=== PATIENT | female | born 1945 | race Caucasian/White ===

== ENCOUNTER → 2017-08-14 | Emergency (ER) | payer MEDICARE ==
[~2017-08-14] VITALS: Ht 165.1 cm; Wt 111.1 kg
[~2017-08-14] MED LIST: CEFTRIAXONE SOD 1 GM VIAL IM ONE; DEXAMETHASONE SOD PHOS 10 MG/1 ML VIAL INJ ONE; DEXAMETHASONE SOD PHOS 10 MG/1 ML VIAL INJ SCH; DEXAMETHASONE SOD PHOS 10 MG/1 ML VIAL ONE; DEXTROSE 50% SYRINGE 50 ML IV ONE; DIAZEPAM INJ 5 MG/ML 2 ML IM ONE; KETOROLAC TROMETHAMINE 30 MG/ML VIAL IM STA; LIDOCAINE HCL 1% LOCAL INJ 20 ML VIAL ONE; LORAZEPAM INJ 2 MG/ML VIAL IV ONE; LORAZEPAM INJ 2 MG/ML VIAL ONE; MORPHINE SULFATE 2 MG/ML SYR IM STA; SODIUM CHLORIDE 0.9% 1000ML 0 ML ONE
--- OUTSIDE RECORDS SUMMARY | 2017-08-14 09:56 | XMS REPORT | Summary of Care ---
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 Generalized anxiety disorder (300.02, F41.1) Status: Active Medications Name Dates Details Medications not documented Allergies and Adverse Reactions Name Dates Details Allergy history not documented Status: Procedures Procedure Dates Details Procedures not documented Immunization Name Dates Details Immunizations not documented Social History Name Dates Details Unknown if ever smoked Vital Signs Date Test Result Details No Known Vitals to report Results Date Description Value Details Results not documented Plan of Care Name Dates Details Planned Observations Planned Goals not documented Instructions Name Dates Details Instructions not documented Encounters Appointment; CHOLO STEINBERG LCSW Encounter Diagnosis: Problem not documented On: 11-Oct-2016 13:30 Appointment; SABINA CHRISTOPHER M.D. Encounter Diagnosis: Problem not documented On: 01-Jan-2017 15:00
[2017-08-14 12:03] LABS: BILIRUBIN,URINE NEGATIVE (NEGATIVE); CLARITY,URINE SL CLOUDY (CLEAR); COLOR,URINE YELLOW (YELLOW); KETONES,URINE NEGATIVE (NEGATIVE); NITRITE,URINE NEGATIVE (NEGATIVE); PROTEIN,URINE DIPSTICK NEGATIVE (NEGATIVE)
[2017-08-14 12:04] LABS: BACTERIA,URINE RARE /HPF; EPITHELIAL CELLS,URINE RARE /LPF; LEUKOCYTE ESTERASE ,URINE 2+ (NEGATIVE); RBC,URINE 0-5 /HPF (0-5); URINE UROBILINOGEN 0.2 mg/dL (0.2 - 1); WBC,URINE (MAN) 21-50 /HPF (0-5)
--- NOTE | 2017-08-14 12:53 | Diagnostic Imaging Report ---
PROCEDURE:L-SPINE COMPLETE COMPARISON:None. INDICATIONS:BACK SPASMS FINDINGS: There are 5 lumbar-type vertebral bodies. Age indeterminate compression fracture the L1 vertebral body is present with approximate 25% decrease at the anterior vertebral body height. Multilevel degenerative changes evidenced by anterior osteophytosis and bilateral facet hypertrophy at L4/L5 and L5/S1. The vertebral bodies are well-aligned without evidence of spondylolisthesis. There are no fractures, lytic or blastic lesions. The disc-space heights are well-maintained. The sacroiliac joints are unremarkable. CONCLUSION: No acute radiographic abnormality. Age-indeterminate compression fracture of L1. Degenerative changes. Dictated by: Wily Denney M.D. on 08/14/2017 at 12:54 Electronically approved by: Wily Denney M.D. on 08/14/2017 at 12:54
--- NOTE | 2017-08-14 13:31 | Diagnostic Imaging Report ---
PROCEDURE: CT ABDOMEN AND PELVIS WITHOUT CONTRAST TECHNIQUE: The abdomen and pelvis were scanned utilizing a multidetector helical scanner from the diaphragm to the lesser trochanter. No IV contrast was administered as per physician request. Coronal and sagittal multiplanar reformations were obtained. COMPARISON: None. INDICATIONS: BACK SPASM, RIGHT FLANK PAIN FINDINGS: ABSENCE OF INTRAVENOUS CONTRAST DECREASES SENSITIVITY FOR DETECTION OF FOCAL LESIONS AND VASCULAR PATHOLOGY. LOWER THORAX: Normal. HEPATOBILIARY: No focal hepatic lesions. No biliary ductal dilatation. Cholecystectomy. SPLEEN: No splenomegaly. PANCREAS: No focal masses or ductal dilatation. ADRENALS: No adrenal nodules. KIDNEYS/URETERS: No hydronephrosis, stones, or solid mass lesions. PELVIC ORGANS/BLADDER: Hysterectomy. No ovaries aren't visualized. Normal urinary bladder. PERITONEUM / RETROPERITONEUM: No free air or fluid. LYMPH NODES: No lymphadenopathy. VESSELS: Atherosclerotic calcifications. GI TRACT: No distention or wall thickening. Normal appendix. Moderate amount of retained feces limits intraluminal evaluation of the colon. BONES AND SOFT TISSUES: Unremarkable. Degenerative changes of the thoracic spine. Age indeterminate compression fracture of L1 vertebral body with 25% decrease in the anterior vertebral body height. IMPRESSION: No acute abnormality of the abdomen and pelvis. Age-indeterminate L1 vertebral body compression fracture. Dictated by: Wily Denney M.D. on 08/14/2017 at 13:31 Electronically approved by: Wily Denney M.D. on 08/14/2017 at 13:31
== END | disposition home or self-care (01) ==
LOC: ER 09:54
DX: M54.5 Low back pain (principal); M54.6 Pain in thoracic spine; S39.012A Strain of muscle, fascia and tendon of lower back, initial encounter; N39.0 Urinary tract infection, site not specified; I10 Essential (primary) hypertension
CPT/HCPCS: 72110; 74176; 81001; 99283; J0696; J1100; J1885; J2001; J2060; J2270; J7030; J7799

== ENCOUNTER 2017-08-18 00:50 | Emergency (ER) | payer MEDICARE ==
[~2017-08-18] VITALS: Ht 165.1 cm; Wt 111.1 kg
--- OUTSIDE RECORDS SUMMARY | 2017-08-18 00:52 | XMS REPORT ---
Author Author [facility] Address Unknown Phone Unavailable Care Team Providers Care Technician Plant And Maintenance Name Role Phone SOHA IRWIN Unavailable Unavailable Problems This patient has no known problems. Allergies, Adverse Reactions, Alerts This patient has no known allergies or adverse reactions. Medications This patient has no known medications. Results Test Description Test Time Test Comments Text Results Atomic Results Result Comments CT ABDOMEN/PELVIS WO [place] [address] Patient Name: BRITTNEY DINH MR #: [id number] : 1945 Age/Sex: 72/F Req #: [id number] [facility] Physician: Ordered by: SOHA IRWIN MD Report #: [id number] Location: ER Room/Bed: Procedure: [id number] CT/CT ABDOMEN/PELVIS WO Exam Date: 08/14/17 Exam Time: 1251 REPORT STATUS: Signed PROCEDURE: CT ABDOMEN AND PELVIS WITHOUT CONTRAST TECHNIQUE: The abdomen and pelvis were scanned utilizing a multidetector helical scanner from the diaphragm to the lesser trochanter. No IV contrast was administered as per physician request. Coronal and sagittal multiplanar reformations were obtained. COMPARISON: None. INDICATIONS: BACK SPASM, RIGHT FLANK PAIN FINDINGS : ABSENCE OF INTRAVENOUS CONTRAST DECREASES SENSITIVITY FOR DETECTION OF FOCAL LESIONS AND VASCULAR PATHOLOGY. LOWER THORAX: Normal. HEPATOBILIARY: No focal hepatic lesions. No biliary ductal dilatation. Cholecystectomy. SPLEEN: No splenomegaly. PANCREAS: No focal masses or ductal dilatation. ADRENALS: No adrenal nodules. KIDNEYS/URETERS: No hydronephrosis, stones, or solid mass lesions. PELVIC ORGANS/BLADDER: Hysterectomy. No ovaries aren't visualized. Normal urinary bladder. PERITONEUM / RETROPERITONEUM: No free air or fluid. LYMPH NODES: No lymphadenopathy. VESSELS: Atherosclerotic calcifications. GI TRACT: No distention or wall thickening. Normal appendix. Moderate amount of retained feces limits intraluminal evaluation of the colon. BONES AND SOFT TISSUES : Unremarkable. Degenerative changes of the thoracic spine. Age indeterminate compression fracture of L1 vertebral body with 25% decrease in the anterior vertebral body height. IMPRESSION: No acute abnormality of the abdomen and pelvis. Age-indeterminate L1 vertebral body compression fracture. Dictated by: Elva Denney M.D. on 08/14/2017 at 13: 31 Electronically approved by: Elva Denney M.D. on 08/14/2017 at 13:31 Dictated By: ELVA DENNEY MD 1331 Transcribed By: EUN on 08/14/17 1331 COPY TO : SOHA IRWIN MD LUMBAR, COMPLETE MIN 4VW [place] [address] Patient Name: BRITTNEY DINH MR #: [id number] : 1945 Age/Sex: 72/F Req #: [id number] Adm Physician: Ordered by: SOHA IRWIN MD Report #: [id number] Location: ER Room/Bed: Procedure: [id number] DX/SP LUMBAR, COMPLETE MIN 4VW Exam Date: 08/14/17 Exam Time: 1150 REPORT STATUS: Signed PROCEDURE: L-SPINE COMPLETE COMPARISON: None. INDICATIONS: BACK SPASMS FINDINGS: There are 5 lumbar-type vertebral bodies. Age indeterminate compression fracture the L1 vertebral body is present with approximate 25% decrease at the anterior vertebral body height. Multilevel degenerative changes evidenced by anterior osteophytosis and bilateral facet hypertrophy at L4/L5 and L5/S1. The vertebral bodies are well-aligned without evidence of spondylolisthesis. There are no fractures, lytic or blastic lesions. The disc-space heights are well-maintained. The sacroiliac joints are unremarkable. CONCLUSION: No acute radiographic abnormality. Age- indeterminate compression fracture of L1. Degenerative changes. Dictated by: Elva Denney M.D. on 08/14/2017 at 12:54 Electronically approved by: Elva Denney M.D. on 08/14/2017 at 12:54 Dictated By : ELVA DENNEY MD 125 Transcribed By: EUN on 08/14/17 1254 COPY TO: SOHA IRWIN MD
== END 2017-08-18 01:20 | disposition home or self-care (01) ==
LOC: ER 00:50
DX: M54.6 Pain in thoracic spine (principal); G89.29 Other chronic pain; I10 Essential (primary) hypertension; F41.9 Anxiety disorder, unspecified; F32.9 Major depressive disorder, single episode, unspecified
CPT/HCPCS: 99282

== ENCOUNTER → 2018-07-21 | Day surgery (SDC) | payer MEDICARE ==
[~2018-07-21] MED LIST changes: +AMLODIPINE BESYL5 MG PO; +BUPROPION HCL75 MG PO; -CEFTRIAXONE SOD 1 GM VIAL IM ONE; +CYMBALTA30 MG PO; -DEXAMETHASONE SOD PHOS 10 MG/1 ML VIAL INJ ONE; -DEXAMETHASONE SOD PHOS 10 MG/1 ML VIAL INJ SCH; -DEXAMETHASONE SOD PHOS 10 MG/1 ML VIAL ONE; -DEXTROSE 50% SYRINGE 50 ML IV ONE; -DIAZEPAM INJ 5 MG/ML 2 ML IM ONE; +FENTANYL CITRATE/PF 100MCG/2 ML INJ ONE; -KETOROLAC TROMETHAMINE 30 MG/ML VIAL IM STA; -LIDOCAINE HCL 1% LOCAL INJ 20 ML VIAL ONE; -LORAZEPAM INJ 2 MG/ML VIAL IV ONE; -LORAZEPAM INJ 2 MG/ML VIAL ONE; +MIDAZOLAM HCL 2 MG/2 ML VIAL ONE; -MORPHINE SULFATE 2 MG/ML SYR IM STA; +OR PHACO EYE KIT ONE; +PREOP PHACO EYE KIT ONE; +SEROQUEL25 MG PO; -SODIUM CHLORIDE 0.9% 1000ML 0 ML ONE; +TIZANIDINE HCL4 MG PO; +TYLENOL WITH C1 EACH PO
--- OUTSIDE RECORDS SUMMARY | 2018-07-21 10:10 | XMS REPORT ---
Author Author Kodi Sue Organization [employer] Address Unknown Phone Unavailable Care Team Providers Care Pipe Recovery Specialist Name Role Phone Kodi Sue CP Unavailable Encounters Encounter Location Date Unknown [place] October 30, 2015 Sick [place] November 30, 2015 Sick Visit [place] Jan 01, 2016 Unknown [place] Jan 22, 2016 Unknown [place] October 19, 2015 Unknown [place] October 19, 2015 Sick Visit [place] October 17, 2015 Problems Problem Type Condition ICD-9 Code Onset Dates Condition Status Problem Adjustment disorder with anxiety F43.22 Active Problem Acute gastric ulcer with hemorrhage K25.0 Active Problem Acute posthemorrhagic anemia D62 Active Problem Essential (primary) hypertension I10 Active Problem Acute abdominal pain R10.9 Active Problem Severe diarrhea K52.9 Active Problem Chronic pancreatitis K86.1 Active Problem Hypotension I95.9 Active Problem H/O gastric ulcer Z87.19 Active Problem Dehydration E86.0 Active Problem PTSD (post-traumatic stress disorder) F43.10 Active Social History Social History Element Qualifiers Date Reported Tobacco Use: . Are you a: current smoker Jan 16, 2016 Use of recreational / street drugs? . Answer: No Jan 16, 2016 Do you have pets? . Status: Yes, Type: dog(s) Jan 16, 2016 Marital Status: . Jan 16, 2016 Caffeine intake? . Status: Yes, What type: Coffee Jan 16, 2016 Do you exercise? . Answer: No Jan 16, 2016 Do you drink alcohol? . Status: No Jan 16, 2016 Travel outside [place]: . no Jan 16, 2016 Occupation: . retired Jan 16, 2016 Summary Purpose [employer] Submission
--- OUTSIDE RECORDS SUMMARY | 2018-07-21 10:10 | XMS REPORT ---
Author Author Kodi Sue Organization [employer] Address Unknown Phone Unavailable Care Team Providers Care Breeding Manager Name Role Phone Kodi Sue CP Unavailable Encounters Encounter Location Date Unknown [place] October 30, 2015 Unknown [facility] October 19, 2015 Unknown [place] October 19, 2015 Sick Visit [place] October 17, 2015 Problems Problem Type Condition ICD-9 Code Onset Dates Condition Status Problem H/O gastric ulcer Z87.19 Active Problem Acute gastric ulcer with hemorrhage K25.0 Active Problem Hypotension I95.9 Active Problem Essential (primary) hypertension I10 Active Problem Acute posthemorrhagic anemia D62 Active Problem Adjustment disorder with anxiety F43.22 Active Medications Medication Code System Code Instructions Start Date End Date Status Dosage Cymbalta MEDISPAN [address]-80 60 MG Orally Once a day Mar 25, 2014 Active 1 capsule Lisinopril MEDISPAN [address]-66 40 mg Orally Once a day Active 1 tablet Social History Social History Element Qualifiers Date Reported Tobacco Use: . Are you a: current smoker October 17, 2015 Use of recreational / street drugs? . Answer: No October 17, 2015 Do you have pets? . Status: Yes, Type: dog(s) October 17, 2015 Marital Status: . October 17, 2015 Caffeine intake? . Status: Yes, What type: Coffee October 17, 2015 Do you exercise? . Answer: No October 17, 2015 Do you drink alcohol? . Status: No October 17, 2015 Travel outside [place]: . no October 17, 2015 Summary Purpose [employer] Submission
--- OUTSIDE RECORDS SUMMARY | 2018-07-21 10:10 | XMS REPORT ---
Author Author Kodi Sue [facility] [employer] Address Unknown Phone Unavailable Care Team Providers Care Sandstone Splitter Name Role Phone Kodi Sue Unavailable Allergies, Adverse Reactions, Alerts Substance Reaction Event Type N.K.D.A. Info Not Available Non Drug Allergy Encounters Encounter Location Date Unknown [place] October 30, 2015 Sick Visit [facility] November 30, 2015 Sick Visit [facility] Jan 01, 2016 Unknown J[place] October 19, 2015 Unknown [place] October 19, 2015 Sick Visit J[place], [place] October 17, 2015 Problems Problem Type Condition ICD-9 Code Onset Dates Condition Status Problem Essential (primary) hypertension I10 Active Problem Acute posthemorrhagic anemia D62 Active Problem Adjustment disorder with anxiety F43.22 Active Problem Severe diarrhea K52.9 Active Problem Dehydration E86.0 Active Problem Acute abdominal pain R10.9 Active Problem H/O gastric ulcer Z87.19 Active Problem Acute gastric ulcer with hemorrhage K25.0 Active Problem PTSD (post-traumatic stress disorder) F43.10 Active Problem Hypotension I95.9 Active Assessment Dehydration E86.0 Active Assessment Severe diarrhea K52.9 Active Assessment Acute abdominal pain R10.9 Active Medications Medication Code System Code Instructions Start Date End Date Status D[facility] [address]-47 40 mg Orally Once a day Active 1 capsule Cymbalta [facility] [address]-67 60 MG Orally Once a day Mar 25, 2014 Active 1 capsule Carafate [facility] [address]-62 1 GM Orally Twice a day Active 1 tablet on an empty stomach [facility] [address]-01 1 MG Orally every six to eight hours Jan 25, 2013 Active 1 tablet Lisinopril [facility] [address]-92 40 mg Orally Once a day Active [...] 2016 Occupation: . retired Jan 16, 2016 Vital Signs Date/Time: Jan 01, 2016 Weight 198 lbs Height 64 in Temperature 97.9 F Blood Pressure Diastolic 101 mm Hg Blood Pressure Systolic 137 mm Hg Summary Purpose eClinicalWorks Submission
--- OUTSIDE RECORDS SUMMARY | 2018-07-21 10:10 | XMS REPORT | Summary of Care ---
Author Author [facility] Organization [facility] Address Unknown Phone Unavailable Encounter DEMETRICE Siddiqi(HILARY) [id number] Date(s): 03/13/17 - 03/13/17 [facility] [address] [place] [address]- [phone] Discharge Diagnosis: Vertebral compression fracture Discharge Disposition: Home or Self Care Attending Physician: Tyree Woodard DO Vital Signs 1 2 3 Most recent to oldest [Reference Range]: 98 DegF (03/13/17 7:13 PM) 98.3 DegF (03/13/17 11:54 AM) Temperature Oral [96.4-99.1 DegF] 115/89 mmHg (03/13/17 7:13 PM) 140/72 mmHg (03/13/17 6:30 PM) 139/72 mmHg (03/13/17 4:40 PM) Blood Pressure [90-140/60-90 mmHg] 18 BRMIN (03/13/17 7:13 PM) 19 BRMIN (03/13/17 6:30 PM) 19 BRMIN (03/13/17 4:40 PM) Respiratory Rate [14-20 BRMIN] 70 bpm (03/13/17 7:13 PM) 69 bpm (03/13/17 6:30 PM) 74 bpm (03/13/17 4:40 PM) Peripheral Pulse Rate [60-100 bpm] 95.455 kg (03/13/17 11:54 AM) Weight Problem List Condition Effective Dates Status Health Status Informant Depression(Confirmed 1996 Resolved ) HTN - 2001 Resolved Hypertension(Confirm ed) Allergies, Adverse Reactions, Alerts Substance Reaction Severity Status NKDA Active Medications acetaminophen-hydrocodone 325 mg-5 mg oral tablet 1 tab, Route: PO, Drug Form: TAB, Dosing Weight 95.455, kg, ONCE, STAT, Start da te: 03/13/17 18:23:00 GUT SNATCHER, Stop date: 03/13/17 18:23:00 GUT SNATCHER Start Date: 03/13/17 Stop Date: 03/13/17 Status: Completed morphine Sulfate 4 mg, Route: IVP, ONCE, Dosing Weight 95.455, kg, Priority: STAT, Start date: 16:26:00 GUT SNATCHER, Stop date: 03/13/17 16:26:00 GUT SNATCHER Start Date: 03/13/17 Stop Date: 03/13/17 Status: Discontinued ondansetron 4 mg, Route: IVP, Drug form: INJ, ONCE, Dosing Weight 95.455, kg, Priority: STAT , Start date: 03/13/17 16:26:00 GUT SNATCHER, Stop date: 03/13/17 16:26:00 GUT SNATCHER Start Date: 03/13/17 Stop Date: 03/13/17 Status: Discontinued tramadol 50 mg oral tablet 50 mg=1 tab, PO, Q12H, X 7 day, # 14 tab, 0 Refill(s) Start Date: 03/13/17 Stop Date: 03/20/17 Status: Ordered Ultram 50 mg oral tablet 50 mg, 1 tab, Route: PO, Drug form: TAB, ONCE, Dosing Weight 95.455, kg, Priorit y: STAT, Start date: 03/13/17 16:34:00 GUT SNATCHER, Stop date: 03/13/17 16:34:00 GUT SNATCHER Notes: Not to exceed 400mg/day. (Same As: Ultram) Start Date: 03/13/17 Stop Date: 03/13/17 Status: Completed Zofran 4 mg, Route: PO, Drug form: TABDIS, ONCE, Dosing Weight 95.455, kg, Priority: ST AT, Start date: 03/13/17 16:45:00 GUT SNATCHER, Stop date: 03/13/17 16:45:00 GUT SNATCHER Start Date: 03/13/17 Stop Date: 03/13/17 Status: Completed Zofran ODT 4 mg, Route: PO, Drug form: TABDIS, ONCE, Dosing Weight 95.455, kg, Priority: ST AT, Start date: 03/13/17 19:12:00 GUT SNATCHER, Stop date: 03/13/17 19:12:00 GUT SNATCHER Start Date: 03/13/17 Stop Date: 03/13/17 Status: Completed Results ELECTROLYTES Most recent to 1 oldest [Reference Range]: Sodium Lvl [135-145 141 mEq/L mEq/L] (03/13/17 1:27 PM) Potassium Lvl 4.6 mEq/L [3.5-5.1 mEq/L] (03/13/17 1:27 PM) Chloride Lvl [95-109 107 mEq/L mEq/L] (03/13/17 1:27 PM) CO2 [24-32 mEq/L] 26 mEq/L (03/13/17 1:27 PM) AGAP [10.0-20.0 12.6 mEq/L mEq/L] (03/13/17 1:27 PM) CHEM PANEL Most recent to 1 oldest [Reference Range]: Creatinine Lvl 0.92 mg/dL [0.50-1.40 mg/dL] (03/13/17 1:27 PM) eGFR 64 mL/min/1.73m2 1 *NA* (03/13/17 1:27 PM) BUN [7-22 mg/dL] 10 mg/dL (03/13/17 1:27 PM) B/C Ratio [6-25] 11 (03/13/17 1:27 PM) Glucose Lvl [70-99 89 mg/dL mg/dL] (03/13/17 1:27 PM) Total Protein 7.1 g/dL [6.4-8.4 g/dL] (03/13/17 1:27 PM) Albumin Lvl [3.5-5.0 3.4 g/dL g/dL] *LOW* (03/13/17 1:27 PM) Globulin [2.7-4.2 3.7 g/dL g/dL] (03/13/17 1:27 PM) A/G Ratio [0.7-1.6] 0.9 (03/13/17 1:27 PM) Calcium Lvl 8.8 mg/dL [8.5-10.5 mg/dL] (03/13/17 1:27 PM) ALT [0-65 unit/L] 48 unit/L (03/13/17 1:27 PM) AST [0-37 unit/L] 49 unit/L *HI* (03/13/17 1:27 PM) Alk Phos [39-136 95 unit/L unit/L] (03/13/17 1:27 PM) Bili Total [0.2-1.3 0.8 mg/dL mg/dL] (03/13/17 1:27 PM) 1Result Comment: The eGFR is calculated using the CKD-EPI formula. In most young, healthy individuals the eGFR will be >90 mL/min/1.73m2. The eGFR declines with age. An eGFR of 60-89 may be normal in some populations, particularly the elderly, for whom the CKD-EPI formula has not been extensively validated. Use of the eGFR is not recommended in the following populations: Individuals with unstable creatinine concentrations, including patients and those with serious co-morbid conditions. Patients with extremes in muscle mass or diet. The data above are obtained from the National Kidney Disease Education Program ( NKDEP) which additionally recommends that when the eGFR is used in patients with extremes of body mass index for purposes of drug dosing, the eGFR should be mul tiplied by the estimated BMI. CARDIAC ENZYMES Most recent to 1 oldest [Reference Range]: Troponin-I <0.02 ng/mL [0.00-0.40 ng/mL] (03/13/17 1:27 PM) HEMATOLOGY Most recent to 1 oldest [Reference Range]: WBC [3.7-10.4 K/CMM] 9.0 K/CMM (03/13/17 1:27 PM) RBC [4.20-5.40 5.45 M/CMM M/CMM] *HI* (03/13/17 1:27 PM) Hgb [12.0-16.0 g/dL] 15.5 g/dL (03/13/17 1:27 PM) Hct [36.0-48.0 %] 47.3 % (03/13/17 1:27 PM) MCV [80.0-98.0 fL] 86.7 fL (03/13/17 1:27 PM) MCH [27.0-31.0 pg] 28.4 pg (03/13/17 1:27 PM) MCHC [32.0-36.0 32.8 g/dL g/dL] (03/13/17 1:27 PM) RDW [11.5-14.5 %] 16.5 % *HI* (03/13/17 1:27 PM) Platelet [133-450 205 K/CMM K/CMM] (03/13/17 1:27 PM) MPV [7.4-10.4 fL] 7.8 fL (03/13/17 1:27 PM) Segs [45.0-75.0 %] 61.1 % (03/13/17 1:27 PM) Lymphocytes 20.6 % [20.0-40.0 %] (03/13/17 1:27 PM) Monocytes [2.0-12.0 8.4 % %] (03/13/17 1:27 PM) Eosinophils [0.0-4.0 9.3 % %] *HI* (03/13/17 1:27 PM) Basophils [0.0-1.0 0.6 % %] (03/13/17 1:27 PM) Segs-Bands # 5.5 K/CMM [1.5-8.1 K/CMM] (03/13/17 1:27 PM) Lymphocytes # 1.9 K/CMM [1.0-5.5 K/CMM] (03/13/17 1:27 PM) Monocytes # [0.0-0.8 0.8 K/CMM K/CMM] (03/13/17 1:27 PM) Eosinophils # 0.8 K/CMM [0.0-0.5 K/CMM] *HI* (03/13/17 1:27 PM) Basophils # [0.0-0.2 0.1 K/CMM K/CMM] (03/13/17 1:27 PM) PT [12.0-14.7 12.2 seconds seconds] (03/13/17 1:27 PM) INR [0.85-1.17] 0.91 (03/13/17 1:27 PM) PTT [22.9-35.8 27.7 seconds seconds] (03/13/17 1:27 PM) Immunizations Given and Recorded Vaccine Date Status Refusal Reason pneumococcal 13-valent vaccine 01/02/16 Given pneumococcal 23-valent vaccine 10/29/12 Given Procedures Procedure Date Related Diagnosis Body Site Hysterectomy 1982 Abdomen endoscopy Cholecystectomy Spiral CT scan Social History Social History Type Response Smoking Status Former smoker; Type: Cigarettes; Exposure to Tobacco Smoke None; Cigarette Smoking Last 365 Days Yes; Reg Smoking Cessation Counseling No Assessment and Plan No data available for this section
--- OUTSIDE RECORDS SUMMARY | 2018-07-21 10:10 | XMS REPORT | Summary of Care ---
Author Author [facility] Organization [facility] Address Unknown Phone Unavailable Encounter DEMETRICE Siddiqi(HILARY) [id number] Date(s): 01/01/16 - 01/03/16 [facility] [address] [place] [address]- Discharge Disposition: Home or Self Care Attending Physician: Kodi Sue MD Admitting Physician: Kodi Sue MD Vital Signs 1 2 3 Most recent to oldest [Reference Range]: 165.1 cm (01/01/16 12:03 PM) Height 98.1 DegF (01/03/16 12:10 PM) 97.8 DegF (01/03/16 8:11 AM) 97.9 DegF (01/03/16 4:00 AM) Temperature Oral [96.4-99.1 DegF] 131/83 mmHg (01/03/16 12:10 PM) 125/65 mmHg (01/03/16 8:11 AM) 125/83 mmHg (01/03/16 4:00 AM) Blood Pressure [90-140/60-90 mmHg] 18 BRMIN (01/03/16 12:10 PM) 18 BRMIN (01/03/16 8:11 AM) 18 BRMIN (01/03/16 4:00 AM) Respiratory Rate [14-20 BRMIN] 75 bpm (01/03/16 12:10 PM) 74 bpm (01/03/16 8:11 AM) 66 bpm (01/03/16 4:00 AM) Peripheral Pulse Rate [60-100 bpm] 89.818 kg (01/01/16 12:03 PM) Weight 32.95 m2 (01/01/16 12:03 PM) Body Mass Index Problem List Condition Effective Dates Status Health Status Informant Depression(Confirmed 1996 Resolved ) HTN - 2001 Resolved Hypertension(Confirm ed) Allergies, Adverse Reactions, Alerts Substance Reaction Severity Status NKDA Active Medications acetaminophen 650 mg, 2 tab, Route: PO, Drug form: TAB, Q4H, Dosing Weight 89.818, kg, PRN Eugene n 1-3/Temp > 100.4 F, Start date: 01/01/16 12:05:00 CDT, Duration: 30 day, Stop date: 01/31/16 12:04:00 CDT Notes: Do not exceed 4 gm/day. (Same as: Tylenol) Start Date: 01/01/16 Stop Date: 01/03/16 Status: Discontinued acetaminophen-hydrocodone 325 mg-5 mg oral tablet 2 tab, Route: PO, Drug Form: TAB, Dosing Weight 89.818, kg, Q4H, PRN Pain Score 7-10, Start date: 01/01/16 12:05:00 CDT, Duration: 30 day, Stop date: 01/31/16 1 2:04:00 CDT Notes: (Same as: Naylor 325/5) Do not exceed 4gm/day of acetaminophen. Start Date: 01/01/16 Stop Date: 01/03/16 Status: Discontinued Cipro 500 mg oral tablet 500 mg=1 tab, PO, Q12H, X 7 day, # 14 tab, 0 Refill(s) Start Date: 01/03/16 Stop Date: 01/10/16 Status: Ordered Cipro I.V. 400 mg/200 mL intravenous solution 400 mg, 200 mL, Route: IVPB, Drug form: INJ, [id number], Dosing Weight 77.273, kg, Start date: 01/01/16 13:00:00 CDT, Duration: 30 day, Stop date: 01/31/16 5:00:00 CDT Notes: Do not refrigerate Start Date: 01/01/16 Stop Date: 01/03/16 Status: Discontinued DULoxetine 60 mg, 2 cap, Route: PO, Drug form: DRC, Daily, Dosing Weight 89.818, kg, Start date: 01/02/16 9:00:00 CDT, Duration: 30 day, Stop date: 01/31/16 9:00:00 CDT Notes: (Same as: Cymbalta) (Do Not Crush) Start Date: 01/02/16 Stop Date: 01/03/16 Status: Discontinued DULoxetine 60 mg oral delayed release capsule 60 mg=1 cap, PO, Daily, # 90 cap, 0 Refill(s) Start Date: 01/01/16 Status: Ordered enoxaparin 40 mg, 0.4 mL, Route: SUB-Q, Drug form: INJ, [id number], Dosing Weight 89.818, kg, Start date: 01/01/16 21:00:00 CDT, Duration: 30 day, Stop date: 01/30/16 21:00: 00 CDT Notes: (Same as: Lovenox) Start Date: 01/01/16 Stop Date: 01/03/16 Status: Discontinued Flagyl 500 mg, 100 mL, Route: IVPB, Drug form: INJ, [id number], Dosing Weight 77.273, kg, S tart date: 01/01/16 14:00:00 CDT, Duration: 30 day, Stop date: 01/31/16 9:00:00 CDT Notes: (Same as: Flagyl) Avoid alcohol. Start Date: 01/01/16 Stop Date: 01/03/16 Status: Discontinued Flagyl 500 mg oral tablet 500 mg=1 tab, PO, Q8H, X 7 day, # 21 tab, 0 Refill(s) Start Date: 01/03/16 Stop Date: 01/10/16 Status: Ordered lisinopril PO, Daily, 0 Refill(s) Start Date: 01/01/16 Stop Date: 01/03/16 Status: Discontinued lisinopril 40 mg oral tablet 40 mg=1 tab, PO, Daily, # 90 tab, 0 Refill(s) Start Date: 01/01/16 Status: Ordered loperamide 1 mg, 5 mL, Route: PO, Drug form: LIQ, Q6H, Dosing Weight 89.818, kg, PRN as nee ded for loose stool, Priority: NOW, Start date: 01/03/16 14:32:00 CDT, Stop date : 02/02/16 16:00:00 CDT Notes: (Same as: Imodium) Start Date: 01/03/16 Stop Date: 01/03/16 Status: Discontinued morphine Sulfate 2 mg, 1 mL, Route: IVP, Drug form: INJ, Q4H, Dosing Weight 89.818, kg, PRN Pain Score 7-10, Start date: 01/01/16 12:05:00 CDT, Duration: 30 day, Stop date: 01/04 12/18 12:04:00 CDT Notes: (Same as:MORPhine Sulfate) Start Date: 01/01/16 Stop Date: 01/03/16 Status: Discontinued omeprazole 40 mg, PO, Daily, 0 Refill(s) Start Date: 01/01/16 Status: Ordered ondansetron 4 mg, 2 mL, Route: IVP, Drug form: INJ, Q6H, Dosing Weight 89.818, kg, PRN Nause a & Vomiting, Start date: 01/01/16 12:05:00 CDT, Duration: 30 day, Stop date: 01/31/16 12:04:00 CDT Notes: (Same as: Emmy) MEDICATION WASTE Product Size: 4 mgProduct Was mahendra: ___ mg Start Date: 01/01/16 Stop Date: 01/03/16 Status: Discontinued pneumococcal 13-valent vaccine 0.5 mL, Route: IM, Drug Form: INJ, Daily, Start date: 01/02/16 9:00:00 CDT, Stop date: 01/02/16 12:00:00 CDT Notes: Lightly roll vial (DO NOT SHAKE) before administration. (Same as: Prevna r 13) Start Date: 01/02/16 Stop Date: 01/02/16 Status: Completed sodium chloride 0.9% 1000 ml INJ 1,000 mL 1,000 mL, Rate: 125 ml/hr, Infuse over: 8 hr, Route: IV, Dosing Weight 77.273 kg , Total Volume: 1,000, Start date: 01/01/16 11:31:00 CDT, Duration: 30 day, Stop date: 01/31/16 11:30:00 CDT Start Date: 01/01/16 Stop Date: 01/03/16 Status: Discontinued sucralfate 1 g oral tablet 1 gm=1 tab, PO, QID, # 120 tab, 0 Refill(s) Start Date: 01/01/16 Stop Date: 01/31/16 Status: Ordered Xanax 0.5 mg oral tablet 0.5 mg=1 tab, PO, BID, 0 Refill(s) Start Date: 01/01/16 Status: Ordered Xanax 0.5 mg oral tablet 0.5 mg, 1 tab, Route: PO, Drug form: TAB, BID, Dosing Weight 89.818, kg, Start d ate: 01/01/16 21:05:00 CDT, Duration: 30 day, Stop date: 01/31/16 9:00:00 CDT Notes: With food or milk(Same as: Xanax) Start Date: 01/01/16 Stop Date: 01/03/16 Status: Discontinued Results ELECTROLYTES 1 2 3 Most recent to oldest [Reference Range]: 141 mEq/L (01/02/16 10:21 AM) 138 mEq/L (01/01/16 7:26 PM) Sodium Lvl [135-145 mEq/L] 4.2 mEq/L (01/02/16 10:21 AM) 4.1 mEq/L (01/01/16 7:26 PM) Potassium Lvl [3.5-5.1 mEq/L] 110 mEq/L *HI* (01/02/16 10:21 AM) 106 mEq/L (01/01/16 7:26 PM) Chloride Lvl [95-109 mEq/L] 26 mEq/L (01/02/16 10:21 AM) 29 mEq/L (01/01/16 7:26 PM) CO2 [24-32 mEq/L] 9.2 mEq/L *LOW* (01/02/16 10:21 AM) 7.1 mEq/L *LOW* (01/01/16 7:26 PM) AGAP [10.0-20.0 mEq/L] CHEM PANEL 1 2 3 Most recent to oldest [Reference Range]: 1.10 mg/dL (01/02/16 10:21 AM) 1.10 mg/dL (01/01/16 9:56 PM) 1.07 mg/dL (01/01/16 7:26 PM) Creatinine Lvl [0.50-1.40 mg/dL] 52 mL/min/1.73m2 1 *NA* (01/02/16 10:21 AM) 52 mL/min/1.73m2 2 *NA* (01/01/16 9:56 PM) 53 mL/min/1.73m2 3 *NA* (01/01/16 7:26 PM) eGFR 12 mg/dL (01/02/16 10:21 AM) 13 mg/dL (01/01/16 7:26 PM) BUN [7-22 mg/dL] 12 (01/01/16 7:26 PM) B/C Ratio [6-25] 103 mg/dL *HI* (01/02/16 10:21 AM) 84 mg/dL (01/01/16 7:26 PM) Glucose Lvl [70-99 mg/dL] 7.3 g/dL (01/01/16 7:26 PM) Total Protein [6.4-8.4 g/dL] 3.3 g/dL *LOW* (01/01/16 7:26 PM) Albumin Lvl [3.5-5.0 g/dL] 4.0 g/dL (01/01/16 7:26 PM) Globulin [2.7-4.2 g/dL] 0.8 (01/01/16 7:26 PM) A/G Ratio [0.7-1.6] 8.6 mg/dL (01/02/16 10:21 AM) 8.9 mg/dL (01/01/16 7:26 PM) Calcium Lvl [8.5-10.5 mg/dL] 2.0 mg/dL (01/01/16 7:26 PM) Magnesium Lvl [1.8-2.4 mg/dL] 26 unit/L (01/01/16 7:26 PM) ALT [0-65 unit/L] 32 unit/L (01/01/16 7:26 PM) AST [0-37 unit/L] 80 unit/L (01/01/16 7:26 PM) Alk Phos [39-136 unit/L] 0.5 mg/dL (01/01/16 7:26 PM) Bili Total [0.2-1.3 mg/dL] 58 unit/L (01/01/16 7:26 PM) Amylase Lvl [25-115 unit/L] 178 unit/L (01/01/16 7:26 PM) Lipase Lvl [73-393 unit/L] 1Result Comment: The eGFR is calculated using [...] be mul tiplied by the estimated BMI. 2Result Comment: The eGFR is calculated using the [...] be mul tiplied by the estimated BMI. 3Result Comment: The eGFR is calculated using the [...] be mul tiplied by the estimated BMI. HEMATOLOGY 1 2 3 Most recent to oldest [Reference Range]: 6.7 K/CMM (01/02/16 10:21 AM) 11.8 K/CMM *HI* (01/01/16 2:17 PM) WBC [3.7-10.4 K/CMM] 4.96 M/CMM (01/02/16 10:21 AM) 5.17 M/CMM (01/01/16 2:17 PM) RBC [4.20-5.40 M/CMM] 13.6 g/dL (01/02/16 10:21 AM) 14.2 g/dL (01/01/16 2:17 PM) Hgb [12.0-16.0 g/dL] 41.5 % (01/02/16 10:21 AM) 43.8 % (01/01/16 2:17 PM) Hct [36.0-48.0 %] 83.7 fL (01/02/16 10:21 AM) 84.7 fL (01/01/16 2:17 PM) MCV [80.0-98.0 fL] 27.5 pg (01/02/16 10:21 AM) 27.4 pg (01/01/16 2:17 PM) MCH [27.0-31.0 pg] 32.8 g/dL (01/02/16 10:21 AM) 32.4 g/dL (01/01/16 2:17 PM) MCHC [32.0-36.0 g/dL] 16.0 % *HI* (01/02/16 10:21 AM) 16.2 % *HI* (01/01/16 2:17 PM) RDW [11.5-14.5 %] 162 K/CMM (01/02/16 10:21 AM) 177 K/CMM (01/01/16 9:56 PM) 174 K/CMM (01/01/16 2:17 PM) Platelet [133-450 K/CMM] 8.7 fL (01/02/16 10:21 AM) 8.8 fL (01/01/16 2:17 PM) MPV [7.4-10.4 fL] 46.9 % (01/02/16 10:21 AM) 37.0 % *LOW* (01/01/16 2:17 PM) Segs [45.0-75.0 %] 0.0 % (01/01/16 2:17 PM) Bands [0.0-11.0 %] 19.5 % *LOW* (01/02/16 10:21 AM) 24.0 % (01/01/16 2:17 PM) Lymphocytes [20.0-40.0 %] 4.0 % *HI* (01/01/16 2:17 PM) Atypical Lymphs [<=0.0 %] 6.4 % (01/02/16 10:21 AM) 5.0 % (01/01/16 2:17 PM) Monocytes [2.0-12.0 %] 25.9 % *HI* (01/02/16 10:21 AM) 29.0 % *HI* (01/01/16 2:17 PM) Eosinophils [0.0-4.0 %] 1.3 % *HI* (01/02/16 10:21 AM) Basophils [0.0-1.0 %] 1.0 % *HI* (01/01/16 2:17 PM) Myelocytes [<=0.0 %] 3.1 K/CMM (01/02/16 10:21 AM) 4.4 K/CMM (01/01/16 2:17 PM) Segs-Bands # [1.5-8.1 K/CMM] 1.3 K/CMM (01/02/16 10:21 AM) 3.3 K/CMM (01/01/16 2:17 PM) Lymphocytes # [1.0-5.5 K/CMM] 0.4 K/CMM (01/02/16 10:21 AM) 0.6 K/CMM (01/01/16 2:17 PM) Monocytes # [0.0-0.8 K/CMM] 1.7 K/CMM *HI* (01/02/16 10:21 AM) 3.4 K/CMM *HI* (01/01/16 2:17 PM) Eosinophils # [0.0-0.5 K/CMM] 0.1 K/CMM (01/02/16 10:21 AM) Basophils # [0.0-0.2 K/CMM] Normal (01/01/16 2:17 PM) RBC Morph Normal (01/01/16 2:17 PM) Plt Morph 29.7 seconds (01/01/16 9:35 PM) PTT [22.9-35.8 seconds] MOLECULAR DIAGNOSTIC 1 2 3 Most recent to oldest [Reference Range]: Negative (01/01/16 1:14 PM) C difficile DNA [Negative] Immunizations Given and Recorded Vaccine Date Status Refusal Reason pneumococcal 13-valent vaccine 01/02/16 Given pneumococcal 23-valent vaccine 10/29/12 Given Procedures Procedure Date Related Diagnosis Body Site Hysterectomy [address] scan Social History Social History Type Response Smoking Status Current every day smoker; Type: Cigarettes; Lives with someone who smokes; Cigarette Smoking Last 365 Days Yes; Reg Smoking Cessation Counseling No Assessment and Plan Extracted from: Title: Clinical Document Author: Kodi Sue MD Date: 01/03/16 Medicine Progress Daily Chief Complaint: Subjective & Interval history: Patient seen and examined. Objective: Vital Signs (last 24 hrs) Last Charted Temp Oral98.1 DegF (JAN 02 12:10) Heart Rate [id number] bpm (JAN 02 12:10) Resp Rate 18 BRMIN (JAN 02 12:10) NUQ044 mmHg (JAN 02 12:10) DBP83 mmHg (JAN 02 12:10) KhB333 % (JAN 02 12:10) PHYSICAL EXAM: patient out off the floor ambulating. IMPRESSION: 1. Acute on chronic pancreatitis. 2. History of gastric ulcer with perforation. 3. 2 -weeks of diarrhea. 4. History of hypertension. 5. Gastroesophageal reflux disease. 6. Anxiety and depression. PLAN & TREATMENT c-diff negative GI cleared for discharge Tolerating diet dehydration resolved Patient tolerating activity For now npo For details see orders. Plan of care discussed with Disposition: Input/Output RecordInOutBal 3124hr Tot 100 0 100 /3024hr Tot 704 0 704 Scheduled Meds (5):ALPRAZOLam (Xanax 0.5 mg oral tablet), DULoxetine, ciprofloxacin (Cipro I.V. 400 mg/200 mL intravenous solution), enoxaparin, metroNIDAZOLE (Flagyl) Unscheduled Meds: None PRN Meds (5):acetaminophen-hydrocodone (acetaminophen-hydrocodone 325 mg-5 mg oral tablet), acetaminophen, loperamide, morphine Sulfate, ondansetron One Time Meds: None Continuous Infusions (1):sodium chloride 0.9% 1000 ml INJ 1,000 mL Labs (Last four charted values) WBC 6.7(JAN 01)H 11.8(DEC 31) Hgb 13.6(JAN 01)14.2(DEC 31) Hct 41.5(JAN 01)43.8(DEC 31) Plt 162(JAN 01)177(DEC 31)174(DEC 31) Na 141(JAN 01)138(DEC 31) K 4.2(JAN 01)4.1(DEC 31) CO2 26(JAN 01)29(DEC 31) Cl H 110(JAN 01)106(DEC 31) Cr 1.10(JAN 01)1.10(DEC 31)1.07(DEC 31) BUN 12(JAN 01)13(DEC 31) Glucose Random H 103(JAN 01)84(DEC 31) Mg 2.0(DEC 31) Ca 8.6(JAN 01)8.9(DEC 31) PTT 29.7(DEC 31) Extracted from: Title: Clinical Document Author: Kodi Sue MD Date: 01/01/16 Chart reveiwed. Patient seen and examined. WIll continue to follow. [id number]
--- OUTSIDE RECORDS SUMMARY | 2018-07-21 10:10 | XMS REPORT | Summary of Care ---
Author Author [facility] Organization [facility] Address Unknown Phone Unavailable Encounter DEMETRICE Siddiqi(HILARY) [id number] Date(s): 10/17/15 - 10/18/15 [facility] [address] [place] [address]- Discharge Diagnosis: Abdominal pain Discharge Disposition: Home Attending Physician: Linette Kevin DO Vital Signs 1 2 3 Most recent to oldest [Reference Range]: 98.3 DegF (10/17/15 5:11 PM) Temperature Oral [96.4-99.1 DegF] 102/72 mmHg (10/17/15 11:54 PM) 123/62 mmHg (10/17/15 10:15 PM) 125/66 mmHg (10/17/15 8:21 PM) Blood Pressure [90-140/60-90 mmHg] 15 BRMIN (10/17/15 11:54 PM) 14 BRMIN (10/17/15 10:15 PM) 14 BRMIN (10/17/15 8:21 PM) Respiratory Rate [14-20 BRMIN] 90 bpm (10/17/15 5:11 PM) Peripheral Pulse Rate [60-100 bpm] Problem List Condition Effective Dates Status Health Status Informant Depression(Confirmed 1997 Resolved ) HTN - 2001 Resolved Hypertension(Confirm ed) Allergies, Adverse Reactions, Alerts Substance Reaction Severity Status NKDA Active Medications morphine Sulfate 4 mg, 2 mL, Route: IVP, Drug form: INJ, ONCE, Dosing Weight 77.273, kg, Priority : STAT, Start date: 10/17/15 17:13:00 CDT, Stop date: 10/17/15 17:13:00 CDT Notes: (Same as:MORPhine Sulfate) Start Date: 10/17/15 Stop Date: 10/17/15 Status: Completed NS (Bolus) IV 1,000 mL, 1,000 ml/hr, Infuse Over: 1 hr, Route: IV, 1,000, Drug form: INJ, ONCE , Priority: STAT, Dosing Weight 77.273 kg, Start date: 10/17/15 17:07:00 CDT, Du ration: 1 doses or times, Stop date: 10/17/15 17:07:00 CDT Start Date: 10/17/15 Stop Date: 10/17/15 Status: Completed Pepcid 20 mg oral tablet 20 mg=1 tab, PO, BID, # 60 tab, 0 Refill(s) Start Date: 10/17/15 Status: Ordered Protonix 40 mg, Route: IVP, Drug form: INJ, ONCE, Dosing Weight 77.273, kg, Priority: STA T, Start date: 10/17/15 17:13:00 CDT, Stop date: 10/17/15 17:13:00 CDT Notes: For IV push reconstitute with 10 ml 0.9% sodium chloride and push over 2 minutes. (Same as: Protonix) Start Date: 10/17/15 Stop Date: 10/17/15 Status: Completed Saline Flush 0.9% 10 mL, Route: IVP, Drug Form: INJ, Dosing Weight 77.273, kg, PRN, PRN Line Flush , Start date: 10/17/15 17:07:00 CDT, Duration: 30 day, Stop date: 11/16/15 17:06 :00 CDT Notes: (Same as: BD Posiflush) Start Date: 10/17/15 Stop Date: 10/18/15 Status: Discontinued Zofran 4 mg, 2 mL, Route: IVP, Drug form: INJ, ONCE, Dosing Weight 77.273, kg, Priority : STAT, Start date: 10/17/15 17:13:00 CDT, Stop date: 10/17/15 17:13:00 CDT Notes: (Same as: Zofran) MEDICATION WASTE Product Size: 4 mgProduct Was mahendra: ___ mg Start Date: 10/17/15 Stop Date: 10/17/15 Status: Completed Results ELECTROLYTES Most recent to 1 oldest [Reference Range]: Sodium Lvl [135-145 135 mEq/L mEq/L] (10/17/15 5:29 PM) Potassium Lvl See Note 1 [3.5-5.1] (10/17/15 5:29 PM) Chloride Lvl [95-109 108 mEq/L mEq/L] (10/17/15 5:29 PM) CO2 [24-32 mEq/L] 24 mEq/L (10/17/15 5:29 PM) 1Result Comment: The K result of 6.8 should be interpreted with caution due to : moderate hemolysis. Report called to Dian Juarez by Domingo Koenig at 10/17/2015 18:20 . Recollection is recommended. Read Back Ok. CHEM PANEL Most recent to 1 oldest [Reference Range]: Creatinine Lvl 1.18 mg/dL [0.50-1.40 mg/dL] (10/17/15 5:29 PM) eGFR 48 mL/min/1.73m2 1 *NA* (10/17/15 5:29 PM) BUN [7-22 mg/dL] 20 mg/dL (10/17/15 5:29 PM) B/C Ratio [6-25] 17 (10/17/15 5:29 PM) Glucose Lvl [70-99 91 mg/dL mg/dL] (10/17/15 5:29 PM) Total Protein 8.7 g/dL [6.4-8.4 g/dL] *HI* (10/17/15 5:29 PM) Albumin Lvl [3.5-5.0 3.7 g/dL g/dL] (10/17/15 5:29 PM) Globulin [2.0-4.0 5.0 g/dL g/dL] *HI* (10/17/15 5:29 PM) A/G Ratio [0.7-1.6] 0.7 (10/17/15 5:29 PM) Calcium Lvl 9.2 mg/dL [8.5-10.5 mg/dL] (10/17/15 5:29 PM) ALT [0-65 unit/L] 44 unit/L (10/17/15 5:29 PM) AST [0-37 unit/L] 85 unit/L *HI* (10/17/15 5:29 PM) Alk Phos [39-136 97 unit/L unit/L] (10/17/15 5:29 PM) Bili Total [0.2-1.3 0.8 mg/dL mg/dL] (10/17/15 5:29 PM) Lipase Lvl [73-393 257 unit/L unit/L] (10/17/15 5:29 PM) 1Result Comment: The eGFR is calculated [...] [Reference Range]: Troponin-I <0.02 ng/mL [0.00-0.40 ng/mL] (10/17/15 5:29 PM) URINE AND STOOL Most recent to 1 oldest [Reference Range]: UA Turbidity [Clear] Clear (10/17/15 6:49 PM) UA Color [Yellow] Yellow *NA* (10/17/15 6:49 PM) UA pH [5.0-8.0] 5.0 (10/17/15 6:49 PM) UA Spec Grav 1.021 [<=1.030] (10/17/15 6:49 PM) UA Glucose [Negative Negative mg/dL mg/dL] *NA* (10/17/15 6:49 PM) UA Blood [Negative] Negative (10/17/15 6:49 PM) UA Ketones [Negative Negative mg/dL mg/dL] *NA* (10/17/15 6:49 PM) UA Protein [Negative Negative mg/dL mg/dL] (10/17/15 6:49 PM) UA Urobilinogen <=1.0 mg/dL [0.1-1.0 mg/dL] *NA* (10/17/15 6:49 PM) UA Bili [Negative] Negative *NA* (10/17/15 6:49 PM) UA Leuk Est Small [Negative] *ABN* (10/17/15 6:49 PM) UA Nitrite Negative [Negative] (10/17/15 6:49 PM) UA WBC [0-5 /HPF] 8 /HPF *HI* (10/17/15 6:49 PM) UA RBC [0-2 /HPF] 1 /HPF (10/17/15 6:49 PM) UA Sq Epi [Few /LPF] Occasional /LPF *NA* (10/17/15 6:49 PM) UA Hyal Cast [0-2 35 /LPF /LPF] *HI* (10/17/15 6:49 PM) UA Mucus [None Seen Few /LPF /LPF] *NA* (10/17/15 6:49 PM) HEMATOLOGY Most recent to 1 oldest [Reference Range]: WBC [3.7-10.4 K/CMM] 10.5 K/CMM *HI* (10/17/15 5:29 PM) RBC [4.20-5.40 5.66 M/CMM M/CMM] *HI* (10/17/15 5:29 PM) Hgb [12.0-16.0 g/dL] 15.2 g/dL (10/17/15 5:29 PM) Hct [36.0-48.0 %] 47.1 % (10/17/15 5:29 PM) MCV [80.0-98.0 fL] 83.2 fL (10/17/15 5:29 PM) MCH [27.0-31.0 pg] 26.8 pg *LOW* (10/17/15 5:29 PM) MCHC [32.0-36.0 32.2 g/dL g/dL] (10/17/15 5:29 PM) RDW [11.5-14.5 %] 15.5 % *HI* (10/17/15 5:29 PM) Platelet [133-450 210 K/CMM K/CMM] (10/17/15 5:29 PM) MPV [7.4-10.4 fL] 8.8 fL (10/17/15 5:29 PM) Segs [45.0-75.0 %] 61.8 % (10/17/15 5:29 PM) Lymphocytes 26.2 % [20.0-40.0 %] (10/17/15 5:29 PM) Monocytes [2.0-12.0 7.6 % %] (10/17/15 5:29 PM) Eosinophils [0.0-4.0 3.5 % %] (10/17/15 5:29 PM) Basophils [0.0-1.0 0.9 % %] (10/17/15 5:29 PM) Segs-Bands # 6.5 K/CMM [1.5-8.1 K/CMM] (10/17/15 5:29 PM) Lymphocytes # 2.7 K/CMM [1.0-5.5 K/CMM] (10/17/15 5:29 PM) Monocytes # [0.0-0.8 0.8 K/CMM K/CMM] (10/17/15 5:29 PM) Eosinophils # 0.4 K/CMM [0.0-0.5 K/CMM] (10/17/15 5:29 PM) Basophils # [0.0-0.2 0.1 K/CMM K/CMM] (10/17/15 5:29 PM) Immunizations Given and Recorded Vaccine Date Status Refusal Reason pneumococcal 23-valent vaccine 10/29/12 Given Procedures Procedure Date Related Diagnosis Body Site Hysterectomy 1982 Social History Social History Type Response Smoking Status Current every day smoker; Type: Cigarettes; Lives with someone who smokes; Cigarette Smoking Last 365 Days Yes; Reg Smoking Cessation Counseling No Assessment and Plan No data available for this section
--- OUTSIDE RECORDS SUMMARY | 2018-07-21 10:10 | XMS REPORT ---
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 Role Phone Kodi Sue CP Unavailable Encounters Encounter Location Date Unknown [place] October 19, 2015 Unknown [place] October 19, 2015 Problems Problem Type Condition ICD-9 Code Onset Dates Condition Status Problem H/O gastric ulcer Z87.19 Active Problem Acute gastric ulcer with hemorrhage K25.0 Active Problem Hypotension I95.9 Active Problem Essential (primary) hypertension I10 Active Assessment Acute gastric ulcer with hemorrhage K25.0 Active Problem Acute posthemorrhagic anemia D62 Active Problem Adjustment disorder with anxiety F43.22 Active Medications Medication Code System Code Instructions Start Date End Date Status [facility] [id number] GM Orally Twice a day Active 1 tablet on an empty stomach Omeprazole [facility] [address]-72 40 mg Orally Once a day Active 1 capsule Social History Social History Element Qualifiers Date [...]
--- OUTSIDE RECORDS SUMMARY | 2018-07-21 10:10 | XMS REPORT ---
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
--- OUTSIDE RECORDS SUMMARY | 2018-07-21 10:10 | XMS REPORT ---
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 Info Not Available Non Drug Allergy Problems Problem Type Condition Code Onset Dates Condition Status Problem Hypotension I95.9 Active Problem Dehydration E86.0 Active Problem PTSD (post-traumatic stress disorder) F43.10 Active Problem Incontinence of urine in female R32 Active Problem Stress incontinence in female N39.3 Active Problem Incontinence overflow, urine N39.490 Active Problem Acute abdominal pain R10.9 Active Problem Severe diarrhea K52.9 Active Problem Status post cholecystectomy Z90.49 Active Problem Chronic pancreatitis K86.1 Active Assessment PTSD (post-traumatic stress disorder) F43.10 Active Assessment H/O gastric ulcer Z87.19 Active Assessment Stress incontinence in female N39.3 Active Assessment Incontinence of urine in female R32 Active Problem Adjustment disorder with anxiety F43.22 Active Problem Acute posthemorrhagic anemia D62 Active Assessment Essential (primary) hypertension I10 Active Problem Acute gastric ulcer with hemorrhage K25.0 Active Problem Essential (primary) hypertension I10 Active Problem H/O gastric ulcer Z87.19 Active Medications Medication Code System Code Instructions Start Date End Date Status Dosage Omeprazole [facility] [address]-21 40 mg Orally Once a day Active 1 capsule Cymbalta [facility] [address]-36 60 MG Orally Once a day Mar 25, 2014 October 08, 2016 Inactive 1 capsule Lisinopril [facility] [address]-81 40 mg Orally Once a day Active 1 tablet Xanax [facility] [address]-63 0.5 MG Orally every six to eight hours Jan 25, 2013 Active 1 tablet Wellbutrin [place] 0 Active not defined Carafate [facility] [address]-37 1 GM Orally Twice a day Active 1 tablet on an empty stomach Detrol LA [facility] [address]-74 2 MG Orally Once a day October 09, 2016 Active 1 capsule Vital Signs Date/Time: October 08, 2016 BMI 35.18 Index Weight 205 lbs Height 64 in Temperature 98.6 F Blood Pressure Diastolic 95 mm Hg Blood Pressure Systolic 142 mm Hg Results No Known Results Summary Purpose [employer] Submission
--- OUTSIDE RECORDS SUMMARY | 2018-07-21 10:10 | XMS REPORT ---
Author Author Brynn Mcnally [facility] eClinicalWorks Address Unknown Phone Unavailable Care Team Providers Care Model Builder Display Name Role Phone Brynn Mcnally CP Unavailable Allergies, Adverse Reactions, Alerts Substance Reaction Event Type N.K.D.A. Info Not Available Non Drug Allergy Encounters Encounter Location Date Unknown [place] October 19, 2015 Unknown [place] October 19, 2015 Sick Visit [place] October 17, 2015 Problems Problem Type Condition ICD-9 Code Onset Dates Condition Status Assessment BMI 32.0-32.9,adult Z68.32 Active Assessment Hypotension I95.9 Active Assessment H/O gastric ulcer Z87.19 Active Problem H/O gastric ulcer Z87.19 Active Problem Acute gastric ulcer with hemorrhage K25.0 Active Problem Hypotension I95.9 Active Problem Essential (primary) hypertension I10 Active Assessment Adjustment disorder with anxiety F43.22 Active Problem Acute posthemorrhagic anemia D62 Active Problem Adjustment disorder with anxiety F43.22 Active Medications Medication Code System Code Instructions Start Date End Date Status Dosage Lisinopril [facility] [address]-56 40 mg Orally Once a day Active 1 tablet [facility] [address]-10 40 mg Orally Once a day Active 1 capsule Cymbalta [facility] [address]-51 60 MG Orally Once a day Mar 25, 2014 Active 1 capsule Carafate [facility] [address]-23 1 GM Orally Twice a day Active 1 tablet on an empty stomach Xanax [facility] [address]-71 1 MG Orally every six to eight hours Jan 25, 2013 Active 1 tablet Social History Social History [...] outside [place]: . no October 17, 2015 Vital Signs Date/Time: October 17, 2015 Weight 192 lbs Height 64 in Temperature 99.1 F Summary Purpose eClinicalWorks Submission
--- OUTSIDE RECORDS SUMMARY | 2018-07-21 10:10 | XMS REPORT ---
Author Author Kodi Sue [facility] eClinicalWorks Address Unknown Phone Unavailable Care Team Providers Care Facilities Maintenance Assistant Name Role Phone Kodi Sue Unavailable Allergies, Adverse Reactions, Alerts Substance Reaction Event Type N.K.D.A. Info Not Available Non Drug Allergy Encounters Encounter Location Date Unknown [place] October 30, 2015 Sick Visit [place] November 30, 2015 Sick Visit [place] Jan 01, 2016 Unknown Jayson Sanchez MD, [place] Jan 22, 2016 Unknown Jayson Sanchez MD, [place] October 19, 2015 Unknown [place] October 19, 2015 Sick Visit [place] October 17, 2015 Follow-Up [place] Jan 16, 2016 RE[place]LLS [place] Apr 26, 2016 Problems Problem Type Condition ICD-9 Code Onset Dates Condition Status Problem Acute posthemorrhagic anemia D62 Active Problem H/O gastric ulcer Z87.19 Active Problem Acute gastric ulcer with hemorrhage K25.0 Active Problem Chronic pancreatitis K86.1 Active Problem Acute abdominal pain R10.9 Active Problem Status post cholecystectomy Z90.49 Active Problem PTSD (post-traumatic stress disorder) F43.10 Active Problem Hypotension I95.9 Active Problem Severe diarrhea K52.9 Active Problem Dehydration E86.0 Active Assessment Essential (primary) hypertension I10 Active Assessment Adjustment disorder with anxiety F43.22 Active Assessment Status post cholecystectomy Z90.49 Active Problem Essential (primary) hypertension I10 Active Assessment H/O gastric ulcer Z87.19 Active Problem Adjustment disorder with anxiety F43.22 Active Medications Medication Code System Code Instructions Start Date End Date Status Dos[facility] [address]-96 40 mg Orally Once a day Active 1 tablet [facility]ymb[facility] [address]-23 60 MG Orally Once a day Mar 25, 2014 Active 1 capsule Xanax [facility] [address]-87 0.5 MG Orally every six to eight hours Jan 25, 2013 Active 1 tablet Omeprazole [facility] [address]-78 40 mg Orally Once a day Active 1 capsule Carafate [facility] [address]-52 1 GM Orally Twice a day Active 1 tablet on an empty stomach Social History Social History Element Qualifiers Date Reported Tobacco Use: . Are you a: current smoker Apr 26, 2016 Use of recreational / street drugs? . Answer: No Apr 26, 2016 Do you have pets? . Status: Yes, Type: dog(s) Apr 26, 2016 Marital Status: . Apr 26, 2016 Caffeine intake? . Status: Yes, What type: Coffee Apr 26, 2016 Do you exercise? . Answer: No Apr 26, 2016 Do you drink alcohol? . Status: No Apr 26, 2016 Travel outside [place]: . no Apr 26, 2016 Occupation: . retired Apr 26, 2016 Vital Signs Date/Time: Apr 26, 2016 Weight 202 lbs Height 64 in Temperature 98.1 F Blood Pressure Systolic 136.94 mm Hg Summary Purpose eClinicalWorks Submission
--- OUTSIDE RECORDS SUMMARY | 2018-07-21 10:10 | XMS REPORT ---
Author Author Kodi Sue [facility] eClinicalWorks Address Unknown Phone Unavailable Care Team Providers Care Supervisor Boarding Name Role Phone Kodi Sue Unavailable Allergies, Adverse Reactions, Alerts Substance Reaction Event Type N.K.D.A. Info Not Available Non Drug Allergy Encounters Encounter Location Date Unknown J[place] October 30, 2015 Sick Visit J[place] November 30, 2015 Unknown J[place], [place] October 19, 2015 Unknown J[place] October 19, 2015 Sick Visit [place] October 17, 2015 Problems Problem Type Condition ICD-9 Code Onset Dates Condition Status Assessment H/O gastric ulcer Z87.19 Active Assessment Essential (primary) hypertension I10 Active Assessment Adjustment disorder with anxiety F43.22 Active Assessment PTSD (post-traumatic stress disorder) F43.10 Active Problem Hypotension I95.9 Active Problem H/O gastric ulcer Z87.19 Active Problem PTSD (post-traumatic stress disorder) F43.10 Active Problem Adjustment disorder with anxiety F43.22 Active Problem Essential (primary) hypertension I10 Active Problem Acute gastric ulcer with hemorrhage K25.0 Active Problem Acute posthemorrhagic anemia D62 Active Medications Medication Code System Code Instructions Start Date End Date Status Dosage [facility] [address]-90 1 MG Orally every six to eight hours Jan 25, 2013 Active 1 tablet Carafate [facility] [address]-76 1 GM Orally Twice a day Active 1 tablet on an empty stomach Cymbalta [facility] [address]-54 60 MG Orally Once a day Mar 25, 2014 Active 1 capsule Lisinopril [facility] [address]-19 40 mg Orally Once a day Active 1 tablet Omeprazole [facility] [address]-43 40 mg Orally Once a day Active 1 capsule Social History Social History Element Qualifiers Date Reported Tobacco Use: . Are you a: current smoker November 30, 2015 Use of recreational / street drugs? . Answer: No November 30, 2015 Do you have pets? . Status: Yes, Type: dog(s) November 30, 2015 Marital Status: . November 30, 2015 Caffeine intake? . Status: Yes, What type: Coffee November 30, 2015 Do you exercise? . Answer: No November 30, 2015 Do you drink alcohol? . Status: No November 30, 2015 Travel outside [place]: . no November 30, 2015 Family history Qualifier Description Comment Date Reported Maternal Grandmother Comment not available November 30, 2015 Paternal Grandmother Comment not available November 30, 2015 Children alive Comment not available November 30, 2015 Maternal Grandfather Comment not available November 30, 2015 Father Comment not available November 30, 2015 Brother(s) alive Comment not available November 30, 2015 Mother kidney failure, alzheimer November 30, 2015 Paternal Grandfather Comment not available November 30, 2015 Sister(s) Comment not available November 30, 2015 Other: Comment not available November 30, 2015 General Family History Comment not available November 30, 2015 Vital Signs Date/Time: November 30, 2015 Weight 199 lbs Height 64 in Temperature 98.2 F Blood Pressure Diastolic 83 mm Hg Blood Pressure Systolic 113 mm Hg Summary Purpose eClinicalWorks Submission
--- OUTSIDE RECORDS SUMMARY | 2018-07-21 10:10 | XMS REPORT ---
Author Author Kodi Sue [facility] eClinicalWorks Address Unknown Phone Unavailable Care Team Providers Care Waxer Name Role Phone Kodi Sue Unavailable Allergies, [...] [place] Jan 16, 2016 Problems Problem Type Condition ICD-9 Code Onset Dates Condition Status Problem Adjustment disorder with anxiety F43.22 Active Problem Acute gastric ulcer with hemorrhage K25.0 Active Problem Acute posthemorrhagic anemia D62 Active Problem Acute abdominal pain R10.9 Active Problem Severe diarrhea K52.9 Active Problem Chronic pancreatitis K86.1 Active Problem Hypotension I95.9 Active Problem H/O gastric ulcer Z87.19 Active Problem Dehydration E86.0 Active Problem PTSD (post-traumatic stress disorder) F43.10 Active Assessment Adjustment disorder with anxiety F43.22 Active Assessment Essential (primary) hypertension I10 Active Assessment H/O gastric ulcer Z87.19 Active Assessment Chronic pancreatitis K86.1 Active Problem Essential (primary) hypertension I10 Active Medications Medication Code System Code Instructions Start Date End Date Status Dosage [facility] [address]-86 1 GM Orally Twice a day Active 1 tablet on an empty stomach [facility] [address]-08 40 mg Orally Once a day Active 1 tablet Cymbalta [facility] [address]-47 60 MG Orally Once a day Mar 25, 2014 Active 1 capsule Xanax [facility] [address]-55 0.5 MG Orally every six to eight hours Jan 25, 2013 Active 1 tablet Omeprazole [facility] [address]-64 40 mg Orally Once a day Active [...] Jan 16, 2016 Vital Signs Date/Time: Jan 16, 2016 Weight 195 lbs Height 64 in Temperature 97.6 F Blood Pressure Diastolic 91 mm Hg Blood Pressure Systolic 130 mm Hg Summary Purpose eClinicalWorks Submission
--- OUTSIDE RECORDS SUMMARY | 2018-07-21 10:10 | XMS REPORT | Continuity of Care Document ---
Author Author [facility] Interface Address Unknown Phone Unavailable Problems Problem Status Onset Date Classification Date Reported Comments Source Discharge Diagnosis: Vertebral compression fracture 03/13/2017 03/16/2017 [facility] FALL Active 03/13/2017 [facility] Discharge Diagnosis: Chronic pancreatitis 01/04/2016 01/07/2016 [facility] PANCRETITIS Active 01/04/2016 [facility] SEVERE ABD PAIN, DIARRHEA, Active 01/01/2016 [facility] ACUTE ABD PAIN, DEHYDRATION, DIARRHEA, H Active 01/01/2016 [facility] Discharge Diagnosis: Abdominal pain 10/17/2015 10/21/[address] [facility] DR SENT Active 10/17/2015 [facility] HTN - Hypertension Resolved 05/05/2001 Problem 03/16/2017 [facility] Depression Resolved 05/05/1996 Problem 03/16/2017 [facility] H/O gastric ulcer Active Diagnosis 10/10/2016 Enayet Rahim Acute gastric ulcer with hemorrhage Active Problem 10/10/2016 Enayet Rahim Hypotension Active Problem 10/10/2016 Enayet Rahim Essential hypertension Active Diagnosis 10/10/2016 Enayet Rahim Acute posthemorrhagic anemia Active Problem 10/10/2016 Enayet Rahim Adjustment disorder with anxiety Active Problem 10/10/2016 Enayet Rahim Dehydration Active Problem 10/10/2016 Enayet Rahim PTSD Active Problem 10/10/2016 Enayet Rahim Incontinence of urine in female Active Problem 10/10/2016 Enayet Rahim Stress incontinence in female Active Problem 10/10/2016 Enayet Rahim Incontinence overflow, urine Active Problem 10/10/2016 Enayet Rahim Acute abdominal pain Active Problem 10/10/2016 Enayet Rahim Severe diarrhea Active Problem 10/10/2016 Enayet Rahim Status post cholecystectomy Active Problem 10/10/2016 Enayet Rahim Chronic pancreatitis Active Problem 10/10/2016 Enayet Rahim BMI 32.0-32.9,adult Active Diagnosis 10/30/2015 Enayet Rahim DEHYDRATION Active [facility] Medications Medication Details Route Status Patient Instructions Ordering Provider Order Date Source Zofran ODT 4 mg, Route: PO, Drug form: TABDIS, ONCE, Dosing Weight 95.455, kg, Priority: STAT, Start date: 03/13/17 19:12:00 PULP BEATER, Stop date: 03/13/17 19:12:00 PULP BEATER Inactive 03/14/2017 [facility] Acetaminophen 325 MG / Hydrocodone Bitartrate 5 MG Oral Tablet 1 tab, Route: PO, Drug Form: TAB, Dosing Weight 95.455, kg, ONCE, STAT, Start date: 03/13/17 18:23:00 PULP BEATER, Stop date: 03/13/17 18:23:00 PULP BEATER Inactive 03/14/2017 [facility] tramadol hydrochloride 50 MG Oral Tablet 50 mg=1 tab, PO, Q12H, X 7 day, # 14 tab, 0 Refill(s) Active 03/13/2017 [facility] Zofran 4 mg, Route: PO, Drug form: TABDIS, ONCE, Dosing Weight 95.455, kg, Priority: STAT, Start date: 03/13/17 16:45:00 PULP BEATER, Stop date: 03/13/17 16:45:00 PULP BEATER Inactive 03/13/2017 [facility] tramadol hydrochloride 50 MG Oral Tablet [Ultram] 50 mg, 1 tab, Route: PO, Drug form: TAB, ONCE, Dosing Weight 95.455, kg, Priority: STAT, Start date: 03/13/17 16:34:00 PULP BEATER, Stop date: 03/13/17 16:34:00 CSTNotes: Not to exceed 400mg/day. (Same As: Ultram) Inactive 03/13/2017 [facility] Ondansetron 4 mg, Route: IVP, Drug form: INJ, ONCE, Dosing Weight 95.455, kg, Priority: STAT, Start date: 03/13/17 16:26:00 PULP BEATER, Stop date: 03/13/17 16:26:00 PULP BEATER Inactive 03/13/2017 [facility] Morphine 4 mg, Route: IVP, ONCE, Dosing Weight 95.455, kg, Priority: STAT, Start date: 03/13/17 16:26:00 PULP BEATER, Stop date: 03/13/17 16:26:00 PULP BEATER Inactive 03/13/2017 [facility] Detrol LA 1 capsule Orally Active 2 MG Orally Once a day Vikram 10/09/2016 Jayson Sanchez Zofran 4 mg, 2 mL, Route: IVP, Drug form: INJ, ONCE, Dosing Weight 86.364, kg, Priority: STAT, Start date: 01/04/16 21:24:00 CDT, Stop date: 01/04/16 21:24:00 CDTNotes: (Same as: Zofran) MEDICATION WASTE Product Size: 4 mg Product Wasted: ___ mg Inactive 01/05/2016 [facility] Morphine 4 mg, 2 mL, Route: IVP, Drug form: INJ, ONCE, Dosing Weight 86.364, kg, Priority: STAT, Start date: 01/04/16 21:07:00 CDT, Stop date: 01/04/16 21:07:00 CDTNotes: (Same as:MORPhine Sulfate) Inactive 01/05/2016 [facility] Loperamide 1 mg, 5 mL, Route: PO, Drug form: LIQ, Q6H, Dosing Weight 89.818, kg, PRN as needed for loose stool, Priority: NOW, Start date: 01/03/16 14:32:00 CDT, Stop date: 02/02/16 16:00:00 CDTNotes: (Same as: Imodium) Inactive 01/03/2016 [facility] Metronidazole 500 MG Oral Tablet [Flagyl] 500 mg=1 tab, PO, Q8H, X 7 day, # 21 tab, 0 Refill(s) Active 01/03/2016 [facility] Ciprofloxacin 500 MG Oral Tablet [Cipro] 500 mg=1 tab, PO, Q12H, X 7 day, # 14 tab, 0 Refill(s) Active 01/03/2016 [facility] duloxetine 60 mg, 2 cap, Route: PO, Drug form: DRC, Daily, Dosing Weight 89.818, kg, Start date: 01/02/16 9:00:00 CDT, Duration: 30 day, Stop date: 01/31/16 9:00:00 CDTNotes: (Same as: Cymbalta) (Do Not Crush) No Longer Active 01/02/2016 [facility] Streptococcus pneumoniae serotype 1 capsular antigen diphtheria [id number] protein conjugate vaccine / Streptococcus pneumoniae serotype 14 capsular antigen diphtheria [id number] protein conjugate vaccine / Streptococcus pneumoniae serotype 18C capsular antigen d 0.5 mL, Route: IM, Drug Form: INJ, Daily, Start date: 01/02/16 9:00:00 CDT, Stop date: 01/02/16 12:00:00 CDTNotes: Lightly roll vial (DO NOT SHAKE) before administration. (Same as: Prevnar 13) Inactive 01/02/2016 [facility] Alprazolam 0.5 MG Oral Tablet [Xanax] 0.5 mg, 1 tab, Route: PO, Drug form: TAB, BID, Dosing Weight 89.818, kg, Start date: 01/01/16 21:05:00 CDT, Duration: 30 day, Stop date: 01/31/16 9:00:00 CDTNotes: With food or milk (Same as: Xanax) No Longer Active 01/02/2016 [facility] Enoxaparin 40 mg, 0.4 mL, Route: SUB-Q, Drug form: INJ, [id number], Dosing Weight 89.818, kg, Start date: 01/01/16 21:00:00 CDT, Duration: 30 day, Stop date: 01/30/16 21:00:00 CDTNotes: (Same as: Lovenox) No Longer Active 01/02/2016 [facility] Flagyl 500 mg, 100 mL, Route: IVPB, Drug form: INJ, [id number], Dosing Weight 77.273, kg, Start date: 01/01/16 14:00:00 CDT, Duration: 30 day, Stop date: 01/31/16 9:00:00 CDTNotes: (Same as: Flagyl) Avoid alcohol. No Longer Active 01/01/2016 [facility] lisinopril 40 mg oral tablet 40 mg=1 tab, PO, Daily, # 90 tab, 0 Refill(s) Active 01/01/2016 [facility] Lisinopril PO, Daily, 0 Refill(s) No Longer Active 01/01/2016 [facility] sucralfate 1 g oral tablet 1 gm=1 tab, PO, QID, # 120 tab, 0 Refill(s) Active 01/01/2016 [facility] DULoxetine 60 mg oral delayed release capsule 60 mg=1 cap, PO, Daily, # 90 cap, 0 Refill(s) Active 01/01/2016 [facility] Omeprazole 40 mg, PO, Daily, 0 Refill(s) Active 01/01/2016 [facility] Alprazolam 0.5 MG Oral Tablet [Xanax] 0.5 mg=1 tab, PO, BID, 0 Refill(s) Active 01/01/2016 [facility] 200 ML Ciprofloxacin 2 MG/ML Injection [Cipro] 400 mg, 200 mL, Route: IVPB, Drug form: INJ, [id number], Dosing Weight 77.273, kg, Start date: 01/01/16 13:00:00 CDT, Duration: 30 day, Stop date: 01/31/16 5:00:00 CDTNotes: Do not refrigerate No Longer Active 01/01/2016 [facility] Ondansetron 4 mg, 2 mL, Route: IVP, Drug form: INJ, Q6H, Dosing Weight 89.818, kg, PRN Nausea & Vomiting, Start date: 01/01/16 12:05:00 CDT, Duration: 30 day, Stop date: 01/31/16 12:04:00 CDTNotes: (Same as: Zofran) MEDICATION WASTE Product Size: 4 mg Product Wasted: ___ mg No Longer Active 01/01/2016 [facility] Morphine 2 mg, 1 mL, Route: IVP, Drug form: INJ, Q4H, Dosing Weight 89.818, kg, PRN Pain Score 7-10, Start date: 01/01/16 12:05:00 CDT, Duration: 30 day, Stop date: 01/31/16 12:04:00 CDTNotes: (Same as:MORPhine Sulfate) No Longer Active 01/01/2016 [facility] Acetaminophen 325 MG / Hydrocodone Bitartrate 5 MG Oral Tablet 2 tab, Route: PO, Drug Form: TAB, Dosing Weight 89.818, kg, Q4H, PRN Pain Score 7-10, Start date: 01/01/16 12:05:00 CDT, Duration: 30 day, Stop date: 01/31/16 12:04:00 CDTNotes: (Same as: Sterling 325/5) Do not exceed 4gm/day of acetaminophen. No Longer Active 01/01/2016 [facility] Acetaminophen 650 mg, 2 tab, Route: PO, Drug form: TAB, Q4H, Dosing Weight 89.818, kg, PRN Pain 1-3/Temp > 100.4 F, Start date: 01/01/16 12:05:00 CDT, Duration: 30 day, Stop date: 01/31/16 12:04:00 CDTNotes: Do not exceed 4 gm/day. (Same as: Tylenol) No Longer Active 01/01/2016 [facility] sodium chloride 0.9% 1000 ml INJ 1,000 mL 1,000 mL, Rate: 125 ml/hr, Infuse over: 8 hr, Route: IV, Dosing Weight 77.273 kg, Total Volume: 1,000, Start date: 01/01/16 11:31:00 CDT, Duration: 30 day, Stop date: 01/31/16 11:30:00 CDT No Longer Active 01/01/2016 [facility] Famotidine 20 MG Oral Tablet [Pepcid] 20 mg=1 tab, PO, BID, # 60 tab, 0 Refill(s) Active 10/18/2015 [facility] Protonix 40 mg, Route: IVP, Drug form: INJ, ONCE, Dosing Weight 77.273, kg, Priority: STAT, Start date: 10/17/15 17:13:00 CDT, Stop date: 10/17/15 17:13:00 CDTNotes: For IV push reconstitute with 10 ml 0.9% sodi um chloride and push over 2 minutes. (Same as: Protonix) Inactive 10/17/2015 [facility] Zofran 4 mg, 2 mL, Route: IVP, Drug form: INJ, ONCE, Dosing Weight 77.273, kg, Priority: STAT, Start date: 10/17/15 17:13:00 CDT, Stop date: 10/17/15 17:13:00 CDTNotes: (Same as: Zofran) MEDICATION WASTE Product Size: 4 mg Product Wasted: ___ mg Inactive 10/17/2015 [facility] Morphine 4 mg, 2 mL, Route: IVP, Drug form: INJ, ONCE, Dosing Weight 77.273, kg, Priority: STAT, Start date: 10/17/15 17:13:00 CDT, Stop date: 10/17/15 17:13:00 CDTNotes: (Same as:MORPhine Sulfate) Inactive 10/17/2015 [facility] Sodium Chloride 0.154 MEQ/ML Injectable Solution 1,000 mL, 1,000 ml/hr, Infuse Over: 1 hr, Route: IV, 1,000, Drug form: INJ, ONCE, Priority: STAT, Dosing Weight 77.273 kg, Start date: 10/17/15 17:07:00 CDT, Duration: 1 doses or times, Stop date: 10/17/15 17:07:00 CDT Inactive 10/17/2015 [facility] Saline Flush 0.9% 10 mL, Route: IVP, Drug Form: INJ, Dosing Weight 77.273, kg, PRN, PRN Line Flush, Start date: 10/17/15 17:07:00 CDT, Duration: 30 day, Stop date: 11/16/15 17:06:00 CDTNotes: (Same as: BD Posiflush) No Longer Active 10/17/2015 [facility] Cymbalta 1 capsule Orally Active 60 MG Orally Once a day [facility] 03/25/2014 [facility] Xanax 1 tablet Orally Active 0.5 MG Orally every six to eight hours [facility] 01/25/2013 [facility] Xanax 1 tablet Orally Active 1 MG Orally every six to eight hours [facility] 01/25/2013 [facility] Lisinopril 1 tablet Orally Active 40 mg Orally Once a day [facility] Omeprazole 1 capsule Orally Active 40 mg Orally Once a day [facility] Wellbutrin not defined NA Active [facility] Carafate 1 tablet on an empty stomach Orally Active 1 GM Orally Twice a day [facility] Allergies, Adverse Reactions, Alerts Substance Category Reaction Severity Reaction type Status Date Reported Comments Source N.K.D.A. Adverse Reaction Info Not Available Adverse Reaction Active 10/08/2016 Enayet Rahim Immunizations Immunization Date Given Site Status Last Updated Comments Source pneumococcal 13-valent vaccine 01/02/2016 Left deltoid completed [place] [facility] pneumococcal 23-valent vaccine 10/29/2012 Left deltoid completed Amanda [facility] Results Order Name Results Value Reference Range Date Interpretation Comments Source CARDIAC ENZYMES Troponin-I null 0.00 - 0.40 03/13/2017 [facility] B/C Ratio 11 6 - 25 03/13/2017 [facility] CHEM PANEL Globulin 3.7 g/dL 2.7 - 4.2 03/13/2017 [facility]M PANEL AGAP 12.6 meq/L 10.0 - 20.0 03/13/2017 [facility] A/G Ratio 0.9 0.7 - 1.6 03/13/2017 [facility]M PANEL eGFR 64 mL/min/1.73m2 03/13/2017 Result Comment: The eGFR is calculated using the [...] from the National Kidney Disease Education Program (NKDEP) which additionally recommends that when the eGFR is used in patients with extremes of body mass index for purposes of drug dosing, the eGFR should be multiplied by the estimated BMI. [facility] PANEL Bili Total 0.8 mg/dL 0.2 - 1.3 03/13/2017 [facility] PANEL AST 49 unit/L 0 - 37 03/13/2017 [facility] Alk Phos 95 unit/L 39 - 136 03/13/2017 [facility] BUN 10 mg/dL 7 - 22 03/13/2017 [facility] Chloride Lvl 107 meq/L 95 - 109 03/13/2017 [facility] PAN[facility] CO2 26 meq/L 24 - 32 03/13/2017 [facility] Creatinine Lvl 0.92 mg/dL 0.50 - 1.40 03/13/2017 [facility] PANEL Potassium Lvl 4.6 meq/L 3.5 - 5.1 03/13/2017 [facility] PANEL Sodium Lvl 141 meq/L 135 - 145 03/13/2017 [facility]M PANEL ALT 48 unit/L 0 - 65 03/13/2017 [facility]M PANEL Albumin Lvl 3.4 g/dL 3.5 - 5.0 03/13/2017 [facility] CHEM PANEL Total Protein 7.1 g/dL 6.4 - 8.4 03/13/2017 [facility] CHEM PANEL Calcium Lvl 8.8 mg/dL 8.5 - 10.5 03/13/2017 [facility] CHEM PANEL Glucose Lvl 89 mg/dL 70 - 99 03/13/2017 [facility] HEMATOLOGY Monocytes 8.4 % 2.0 - 12.0 03/13/2017 [facility] HEMATOLOGY Lymphocytes # 1.9 K/CMM 1.0 - 5.5 03/13/2017 [facility] HEMATOLOGY Lymphocytes 20.6 % 20.0 - 40.0 03/13/2017 [facility] HEMATOLOGY Segs 61.1 % 45.0 - 75.0 03/13/2017 [facility] HEMATOLOGY Eosinophils 9.3 % 0.0 - 4.0 03/13/2017 [facility] HEMATOLOGY Eosinophils # 0.8 K/CMM 0.0 - 0.5 03/13/2017 [facility] HEMATOLOGY Basophils # 0.1 K/CMM 0.0 - 0.2 03/13/2017 [facility] HEMATOLOGY Monocytes # 0.8 K/CMM 0.0 - 0.8 03/13/2017 [facility] HEMATOLOGY Segs-Bands # 5.5 K/CMM 1.5 - 8.1 03/13/2017 [facility] HEMATOLOGY Basophils 0.6 % 0.0 - 1.0 03/13/2017 [facility] HEMATOLOGY INR 0.91 0.85 - 1.17 03/13/2017 [facility] PTT 27.7 s 22.9 - 35.8 03/13/2017 [facility] HEMATOLOGY PT 12.2 s 12.0 - 14.7 03/13/2017 [facility] HEMATOLOGY MPV 7.8 fL 7.4 - 10.4 03/13/2017 [facility] HEMATOLOGY RDW 16.5 % 11.5 - 14.5 03/13/2017 [facility] MCH 28.4 pg 27.0 - 31.0 03/13/2017 [facility] MCHC 32.8 g/dL 32.0 - 36.0 03/13/2017 [facility] HEMATOLOGY MCV 86.7 fL 80.0 - 98.0 03/13/2017 [facility] HEMATOLOGY Hct 47.3 % 36.0 - 48.0 03/13/2017 [facility] HEMATOLOGY Hgb 15.5 g/dL 12.0 - 16.0 03/13/2017 [facility] HEMATOLOGY Platelet 205 K/CMM 133 - 450 03/13/2017 [facility] HEMATOLOGY RBC 5.45 M/CMM 4.20 - 5.40 03/13/2017 [facility] HEMATOLOGY WBC 9.0 K/CMM 3.7 - 10.4 03/13/2017 [facility] Abdomen/Pelvis wo IV contrast CT Abdomen/Pelvis wo IV contrast CT Patient Name: BRITTNEY DINH : 1945; Age: 71 years y/o Female MR: [id number] Study: Abdomen/Pelvis wo IV contrast CT 03/13/2017 3:39 PM PULP BEATER Referring physician:Tyree Woodard DO Clinical Indication: CT DLP: 933.63 MGY-CM - abd pain, fell around 10 AM, c/o lower back pain that radiates down her legs. Comparison: 10/17/2015. TECHNIQUE: Sequential trans-axial images were obtained with a multi-detector helical CT without administration of IV contrast. Coronal and sagittal reconstructions were obtained. FINDINGS: LUNG BASES: Lung bases are clear without significant pleural effusion bilaterally. ABDOMINAL ORGANS: No focal liver or splenic abnormality. No pelvocaliectasis or ureterectasis bilaterally. No calculi are identified within either kidney or along the course of either collecting system. Kidneys are unremarkable bilaterally. The adrenals, pancreas are unremarkable. Gallbladder surgically absent. PERITONEUM AND RETROPERITONEUM: No abdominal or pelvic lymphadenopathy. No free intraperitoneal air. No abnormal fluid collection identified in the abdomen or pelvis. The abdominal aorta is unremarkable. BOWEL: No bowel abnormality identified in the abdomen or pelvis. The appendix is unremarkable. PELVIS: No pelvic mass. Bladder is unremarkable. Prior cholecystectomy. BONES: Mild superior endplate compression deformity of L1 vertebra. The posterior wall is displaced only 3 mm. There is no evidence for bony spinal canal stenosis. Chronic lumbar spine degenerative changes with disc space narrowing at L5-S1, L2-L3 and L3-L4. IMPRESSION: Likely acute L1 superior endplate mild compression fracture. If neurological symptoms are present, consider magnetic resonance imaging to evaluate neural involvement. No acute abdominal or pelvic findings are otherwise demonstrated. SL: [id number] 03/13/2017 - - Read by: Kodi Nina MD Dictated Date/time: 03/13/17 15:57 Electronically Signed by: Kodi Nina MD 03/13/17 16:04 FINAL REPORT [facility] Spine cervical wo contrast CT (ER) Spine cervical wo contrast CT (ER) Patient Name: BRITTNEY DINH : 1945; Age: 71 years y/o Female MR: [id number] Study: Spine cervical wo contrast CT (ER) 03/13/2017 12:38 PM PULP BEATER Ordering Physician: Clinical Indication: Fall; Comparison: None Technique: Multi-detector CT imaging of the cervical spine is performed. Coronal and sagittal reconstructions were obtained. CT Radiation Dose DLP 819 mGy-cm FINDINGS: ALIGNMENT AND GENERAL ASSESSMENT: C4 vertebral body shows 2 mm anterior displacement relative to C5. Remaining vertebral bodies show anatomic alignment. Osseous structures remain intact. The craniocervical junction is normal. The atlanto-dental alignment appears unremarkable. The posterior elements and spinous processes are unremarkable. The facet joint, spinolaminar and spinous process alignment are normal. DISK SPACES AND SOFT TISSUES: The prevertebral soft tissues are normal. C2-C3 to C7-T1 disc space levels show no definite disc protrusions on CT. Uncovertebral and facet hypertrophy diffusely narrows bilateral neural foramina. Intervertebral disc spaces show diffuse narrowing with osteophytes, worst at C5-C6 and C6-C7. MRI is the gold standard to assess for disk disease. VISUALIZED LUNG APICES: Unremarkable. CT myelogram or MRI of the cervical spine may be performed, if there is further concern. IMPRESSION: No acute osseous injury C4-C5 anterolisthesis may be degenerative. Imaging findings do not exclude ligamentous injury. SL: WHALON 03/13/2017 - - Read by: Kel Franco MD Dictated Date/time: 03/13/17 16:15 Electronically Signed by: Kel Franco MD 03/13/17 16:20 FINAL REPORT [facility] Brain wo contrast CT Brain wo contrast CT Patient Name: BRITTNEY DINH : 1945; Age: 71 years y/o Female MR: [id number] Study: Brain wo contrast CT 03/13/2017 12:37 PM PULP BEATER Ordering Physician: Morena Meredith Clinical Indication: CT DLP:859.00 MGY-CM - fall, fell around 10 AM, unknown loc. c/o lower back pain that radiates down her legs. no distress. pt answering all questions appropriately. no shortening or rotation of legs noted. full rom of legs and arms. pt smiling; Comparison: None TECHNIQUE: CT images were obtained from the foramen magnum to the vertex without the use of intravenous contrast on a multidetector CT. Coronal and sagittal reconstructions were obtained. CT radiation dose DLP: 1678 mGy-cm FINDINGS: There is no evidence of acute intracranial hemorrhage, subacute territorial infarct, mass effect, midline shift, extra-axial fluid collection, hydrocephalus or other acute abnormalities. There is mild generalized cerebral volume loss with associated ventricular prominence. There are mild nonspecific supratentorial white matter hypodensities likely representing chronic small vessel ischemic changes in this age. There is a chronic appearing lacunar insult in the anterior limb of the right internal capsule and lentiform nucleus. A 7 mm partially calcified dural based mass in the right frontal convexity likely represents a meningioma. The posterior fossa is unremarkable. There are calcifications in the carotid siphons and intradural vertebral arteries. The calvarium, paranasal sinuses and mastoids are unremarkable. If there is further concern for intracranial pathology or acute stroke, further assessment with an MRI of the brain should be considered. IMPRESSION: 1. No evidence of acute process. 2. Mild age-related and chronic ischemic changes. 3. 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 4. A subcentimeter right frontal meningioma. 5. Other chronic findings as above. SL: SALLY 03/13/2017 - - Read by: Vanessa Chilelap Dictated Date/time: 03/13/17 16:17 Electronically Signed by: Vanessa Chilel 03/13/17 16:21 FINAL REPORT [facility] Chest 1view DX Chest 1view DX Study: Chest 1view DX AP 03/13/2017 1331 hours Clinical Indication: -Chest pain post fall Comparison: Chest 10/17/2015 FINDINGS: Cardiac size is normal. Aortic atherosclerosis is noted. The lungs are moderately inflated with slight elevation of the right hemidiaphragm. No pneumonia, vascular congestion or pleural effusion is seen. There is mild thoracic levoscoliosis and spondylosis. No gross fracture is noted. IMPRESSION: No acute abnormality or change. SL: [id number] 03/13/2017 - - Read by: Erasmo Seth MD Dictated Date/time: 03/13/17 13:22 Electronically Signed by: Erasmo Seth MD 03/13/17 13:23 FINAL REPORT [facility] Spine lumbar 2 or 3 views DX Spine lumbar 2 or 3 views DX Clinical Indication: Lower back pain. Comparison: Lumbar spine x-rays 10/29/2012 Technique:AP, lateral, and spot lateral views of the lumbar spine. FINDINGS: Alignment: Normal lumbar lordosis. Vertebrae: Compression fracture at L1 results in 15-20% vertebral loss, not present on 10/29/2012. No involvement/retropulsion of the posterior wall. No additional fractures. Facet hypertrophy, most pronounced at L5-S1. Anterior osteophytes from L2 through L5. Intervertebral discs: Moderately degenerated disc at L2-L3 and L5-S1 is unchanged. Soft tissues: The paraspinal soft tissues are unremarkable. If there is further concern or neurological abnormalities on clinical exam, MRI or CT of the lumbar spine may be performed for complete assessment. IMPRESSION: Age-indeterminate fracture at L1 results in approximately 15-20% vertebral body height loss. Correlation with point tenderness recommended. Degenerative changes of lumbar spine,, most pronounced at L5-S1 SL: [id number] 03/13/2017 - - Read by: Kalin Moore MD Dictated Date/time: 03/13/17 13:22 Electronically Signed by: Kalin Moore MD 03/13/17 13:26 FINAL REPORT [facility] CHEM PANEL Calcium Lvl 9.8 mg/dL 8.5 - 10.5 01/04/2016 [facility] CHEM PANEL Total Protein 7.8 g/dL 6.4 - 8.4 01/04/2016 [facility] CHEM PANEL Bili Total 0.4 mg/dL 0.2 - 1.3 01/04/2016 [facility] CHEM PANEL Albumin Lvl 3.8 g/dL 3.5 - 5.0 01/04/2016 [facility] CHEM PANEL ALT 28 unit/L 0 - 65 01/04/2016 [facility] CHEM PANEL AST 41 unit/L 0 - 37 01/04/2016 [facility] CHEM PANEL Alk Phos 89 unit/L 39 - 136 01/04/2016 [facility] CHEM PANEL eGFR 51 mL/min/1.73m2 01/04/2016 Result Comment: The eGFR is calculated using the [...] from the National Kidney Disease Education Program (NKDEP) which additionally recommends that when the eGFR is used in patients with extremes of body mass index for purposes of drug dosing, the eGFR should be multiplied by the estimated BMI. [facility] CHEM PANEL Creatinine Lvl 1.12 mg/dL 0.50 - 1.40 01/04/2016 [facility] CHEM PANEL Glucose Lvl 103 mg/dL 70 - 99 01/04/2016 [facility] CHEM PANEL BUN 9 mg/dL 7 - 22 01/04/2016 [facility] CHEM PANEL Sodium Lvl 140 meq/L 135 - 145 01/04/2016 [facility] CHEM PANEL Potassium Lvl 3.8 meq/L 3.5 - 5.1 01/04/2016 [facility] CHEM PANEL Chloride Lvl 107 meq/L 95 - 109 01/04/2016 [facility] CHEM PANEL CO2 29 meq/L 24 - 32 01/04/2016 [facility] CHEM PANEL AGAP 7.8 meq/L 10.0 - 20.0 01/04/2016 [facility] CHEM PANEL Globulin 4.0 g/dL 2.7 - 4.2 01/04/2016 [facility] CHEM PANEL B/C Ratio 8 6 - 25 01/04/2016 [facility] CHEM PANEL A/G Ratio 1.0 0.7 - 1.6 01/04/2016 [facility] CHEM PANEL Lipase Lvl 220 unit/L 73 - 393 01/04/2016 [facility] HEMATOLOGY MPV 8.6 fL 7.4 - 10.4 01/04/2016 [facility] HEMATOLOGY RBC 4.99 M/CMM 4.20 - 5.40 01/04/2016 [facility] HEMATOLOGY WBC 10.1 K/CMM 3.7 - 10.4 01/04/2016 [facility] HEMATOLOGY Hgb 13.8 g/dL 12.0 - 16.0 01/04/2016 [facility] HEMATOLOGY MCV 82.8 fL 80.0 - 98.0 01/04/2016 [facility] HEMATOLOGY Hct 41.3 % 36.0 - 48.0 01/04/2016 [facility] HEMATOLOGY Platelet 152 K/CMM 133 - 450 01/04/2016 [facility] HEMATOLOGY RDW 15.7 % 11.5 - 14.5 01/04/2016 [facility] MCH 27.7 pg 27.0 - 31.0 01/04/2016 [facility] MCHC 33.5 g/dL 32.0 - 36.0 01/04/2016 [facility] HEMATOLOGY Segs 52.8 % 45.0 - 75.0 01/04/2016 [facility] HEMATOLOGY Eosinophils 21.0 % 0.0 - 4.0 01/04/2016 [facility] HEMATOLOGY Lymphocytes 19.2 % 20.0 - 40.0 01/04/2016 [facility] HEMATOLOGY Monocytes 6.1 % 2.0 - 12.0 01/04/2016 [facility] HEMATOLOGY Lymphocytes # 1.9 K/CMM 1.0 - 5.5 01/04/2016 [facility] HEMATOLOGY Monocytes # 0.6 K/CMM 0.0 - 0.8 01/04/2016 [facility] HEMATOLOGY Basophils 0.9 % 0.0 - 1.0 01/04/2016 [facility] HEMATOLOGY Segs-Bands # 5.3 K/CMM 1.5 - 8.1 01/04/2016 [facility] HEMATOLOGY Basophils # 0.1 K/CMM 0.0 - 0.2 01/04/2016 [facility] HEMATOLOGY Eosinophils # 2.1 K/CMM 0.0 - 0.5 01/04/2016 [facility] URINE AND STOOL UA Urobilinogen <=1.0 mg/dL 0.1 - 1.0 01/04/2016 [facility] URINE AND STOOL UA Mucus Few /LPF None Seen /LPF 01/04/2016 [facility] URINE AND STOOL UA CaOx Noemy Moderate /HPF None Seen /HPF 01/04/2016 [facility] URINE AND STOOL UA Hyal Cast 9 /LPF 0 - 2 01/04/2016 [facility] URINE AND STOOL UA Glucose Negative mg/dL Negative mg/dL 01/04/2016 [facility] URINE AND STOOL UA Blood Negative (01/04/16 5:47 PM) Negative 01/04/2016 [facility] URINE AND STOOL UA Ketones Trace mg/dL Negative mg/dL 01/04/2016 [facility] URINE AND STOOL UA Nitrite Negative (01/04/16 5:47 PM) Negative 01/04/2016 [facility] URINE AND STOOL UA Bili Negative *NA* (01/04/16 5:47 PM) Negative 01/04/2016 [facility] URINE AND STOOL UA Leuk Est Trace *ABN* (01/04/16 5:47 PM) Negative 01/04/2016 [facility] URINE AND STOOL UA RBC 67 /HPF 0 - 2 01/04/2016 [facility] URINE AND STOOL UA WBC 31 /HPF 0 - 5 01/04/2016 [facility] URINE AND STOOL UA Sq Epi Occasional /LPF Few /LPF 01/04/2016 [facility] URINE AND STOOL UA Color Yellow *NA* (01/04/16 5:47 PM) Yellow 01/04/2016 [facility] URINE AND STOOL UA Spec Grav 1.015 <=1.030 01/04/2016 [facility] URINE AND STOOL UA Turbidity Marked *ABN* (01/04/16 5:47 PM) Clear 01/04/2016 [facility] URINE AND STOOL UA Protein Negative mg/dL Negative mg/dL 01/04/2016 [facility] URINE AND STOOL UA pH 6.0 5.0 - 8.0 01/04/2016 [facility] ELECTROLYTES AGAP 9.2 meq/L 10.0 - 20.0 01/02/2016 [facility] ELECTROLYTES eGFR 52 mL/min/1.73m2 01/02/2016 Result Comment: The eGFR is calculated using the [...] from the National Kidney Disease Education Program (NKDEP) which additionally recommends that when the eGFR is used in patients with extremes of body mass index for purposes of drug dosing, the eGFR should be multiplied by the estimated BMI. [facility] ELECTROLYTES Chloride Lvl 110 meq/L 95 - 109 01/02/2016 [facility] ELECTROLYTES Sodium Lvl 141 meq/L 135 - 145 01/02/2016 [facility] ELECTROLYTES Potassium Lvl 4.2 meq/L 3.5 - 5.1 01/02/2016 [facility] ELECTROLYTES CO2 26 meq/L 24 - 32 01/02/2016 [facility] ELECTROLYTES Calcium Lvl 8.6 mg/dL 8.5 - 10.5 01/02/2016 [facility] ELECTROLYTES Creatinine Lvl 1.10 mg/dL 0.50 - 1.40 01/02/2016 [facility] ELECTROLYTES BUN 12 mg/dL 7 - 22 01/02/2016 [facility] ELECTROLYTES Glucose Lvl 103 mg/dL 70 - 99 01/02/2016 [facility] HEMATOLOGY MCHC 32.8 g/dL 32.0 - 36.0 01/02/2016 [facility] HEMATOLOGY RDW 16.0 % 11.5 - 14.5 01/02/2016 [facility] HEMATOLOGY Platelet 162 K/CMM 133 - 450 01/02/2016 [facility] HEMATOLOGY MPV 8.7 fL 7.4 - 10.4 01/02/2016 [facility] HEMATOLOGY Hgb 13.6 g/dL 12.0 - 16.0 01/02/2016 [facility] HEMATOLOGY RBC 4.96 M/CMM 4.20 - 5.40 01/02/2016 [facility] HEMATOLOGY MCV 83.7 fL 80.0 - 98.0 01/02/2016 [facility] MCH 27.5 pg 27.0 - 31.0 01/02/2016 [facility] HEMATOLOGY Hct 41.5 % 36.0 - 48.0 01/02/2016 [facility] HEMATOLOGY WBC 6.7 K/CMM 3.7 - 10.4 01/02/2016 [facility] HEMATOLOGY Segs 46.9 % 45.0 - 75.0 01/02/2016 [facility] HEMATOLOGY Lymphocytes 19.5 % 20.0 - 40.0 01/02/2016 [facility] HEMATOLOGY Monocytes 6.4 % 2.0 - 12.0 01/02/2016 [facility] HEMATOLOGY Eosinophils 25.9 % 0.0 - 4.0 01/02/2016 [facility] HEMATOLOGY Basophils # 0.1 K/CMM 0.0 - 0.2 01/02/2016 [facility] HEMATOLOGY Monocytes # 0.4 K/CMM 0.0 - 0.8 01/02/2016 [facility] HEMATOLOGY Eosinophils # 1.7 K/CMM 0.0 - 0.5 01/02/2016 [facility] HEMATOLOGY Basophils 1.3 % 0.0 - 1.0 01/02/2016 [facility] HEMATOLOGY Segs-Bands # 3.1 K/CMM 1.5 - 8.1 01/02/2016 [facility] HEMATOLOGY Lymphocytes # 1.3 K/CMM 1.0 - 5.5 01/02/2016 [facility] CHEM PANEL eGFR 52 mL/min/1.73m2 01/02/2016 Result Comment: The eGFR is calculated using the [...] from the National Kidney Disease Education Program (NKDEP) which additionally recommends that when the eGFR is used in patients with extremes of body mass index for purposes of drug dosing, the eGFR should be multiplied by the estimated BMI. [facility] CHEM PANEL Creatinine Lvl 1.10 mg/dL 0.50 - 1.40 01/02/2016 [facility] HEMATOLOGY Platelet 177 K/CMM 133 - 450 01/02/2016 [facility] HEMATOLOGY PTT 29.7 s 22.9 - 35.8 01/02/2016 [facility] CHEM PANEL Magnesium Lvl 2.0 mg/dL 1.8 - 2.4 01/02/2016 [facility] CHEM PANEL eGFR 53 mL/min/1.73m2 01/02/2016 Result Comment: The eGFR is calculated using the [...] from the National Kidney Disease Education Program (NKDEP) which additionally recommends that when the eGFR is used in patients with extremes of body mass index for purposes of drug dosing, the eGFR should be multiplied by the estimated BMI. [facility] CHEM PANEL B/C Ratio 12 6 - 25 01/02/2016 [facility] CHEM PANEL A/G Ratio 0.8 0.7 - 1.6 01/02/2016 [facility] CHEM PANEL Globulin 4.0 g/dL 2.7 - 4.2 01/02/2016 [facility] CHEM PANEL AGAP 7.1 meq/L 10.0 - 20.0 01/02/2016 [facility] CHEM PANEL Albumin Lvl 3.3 g/dL 3.5 - 5.0 01/02/2016 [facility] CHEM PANEL ALT 26 unit/L 0 - 65 01/02/2016 [facility] CHEM PANEL AST 32 unit/L 0 - 37 01/02/2016 [facility] CHEM PANEL BUN 13 mg/dL 7 - 22 01/02/2016 [facility] CHEM PANEL Glucose Lvl 84 mg/dL 70 - 99 01/02/2016 [facility] CHEM PANEL Alk Phos 80 unit/L 39 - 136 01/02/2016 [facility] CHEM PANEL Bili Total 0.5 mg/dL 0.2 - 1.3 01/02/2016 [facility] CHEM PANEL Sodium Lvl 138 meq/L 135 - 145 01/02/2016 [facility] CHEM PANEL Chloride Lvl 106 meq/L 95 - 109 01/02/2016 [facility] CHEM PANEL Potassium Lvl 4.1 meq/L 3.5 - 5.1 01/02/2016 [facility] CHEM PANEL CO2 29 meq/L 24 - 32 01/02/2016 [facility] CHEM PANEL Creatinine Lvl 1.07 mg/dL 0.50 - 1.40 01/02/2016 [facility] CHEM PANEL Total Protein 7.3 g/dL 6.4 - 8.4 01/02/2016 [facility] CHEM PANEL Calcium Lvl 8.9 mg/dL 8.5 - 10.5 01/02/2016 [facility] CHEM PANEL Lipase Lvl 178 unit/L 73 - 393 01/02/2016 [facility] CHEM PANEL Amylase Lvl 58 unit/L 25 - 115 01/02/2016 [facility] HEMATOLOGY Lymphocytes # 3.3 K/CMM 1.0 - 5.5 01/01/2016 [facility] HEMATOLOGY Monocytes # 0.6 K/CMM 0.0 - 0.8 01/01/2016 [facility] HEMATOLOGY Atypical Lymphs 4.0 % <=0.0 % 01/01/2016 [facility] HEMATOLOGY Myelocytes 1.0 % <=0.0 % 01/01/2016 [facility] HEMATOLOGY Monocytes 5.0 % 2.0 - 12.0 01/01/2016 [facility] RBC Morph Normal (01/01/16 2:17 PM) 01/01/2016 [facility] Eosinophils 29.0 % 0.0 - 4.0 01/01/2016 [facility] Plt Morph Normal (01/01/16 2:17 PM) 01/01/2016 [facility] Eosinophils # 3.4 K/CMM 0.0 - 0.5 01/01/2016 [facility] Lymphocytes 24.0 % 20.0 - 40.0 01/01/2016 [facility] HEMATOLOGY Bands 0.0 % 0.0 - 11.0 01/01/2016 [facility] Segs 37.0 % 45.0 - 75.0 01/01/2016 [facility] Segs-Bands # 4.4 K/CMM 1.5 - 8.1 01/01/2016 [facility] MPV 8.8 fL 7.4 - 10.4 01/01/2016 [facility] WBC 11.8 K/CMM 3.7 - 10.4 01/01/2016 [facility] Hct 43.8 % 36.0 - 48.0 01/01/2016 [facility] RBC 5.17 M/CMM 4.20 - 5.40 01/01/2016 [facility] Hgb 14.2 g/dL 12.0 - 16.0 01/01/2016 [facility] MCV 84.7 fL 80.0 - 98.0 01/01/2016 [facility] MCH 27.4 pg 27.0 - 31.0 01/01/2016 [facility] Platelet 174 K/CMM 133 - 450 01/01/2016 [facility] MCHC 32.4 g/dL 32.0 - 36.0 01/01/2016 [facility] RDW 16.2 % 11.5 - 14.5 01/01/2016 [facility] MOLECULAR DIAGNOSTIC C difficile DNA Negative (01/01/16 1:14 PM) Negative 01/01/2016 [facility] Abdomen/Pelvis wo IV contrast CT Abdomen/Pelvis wo IV contrast CT CT ABDOMEN AND PELVIS WITHOUT CONTRAST INDICATION: Generalized abdominal pain, diarrhea COMPARISON: CT abdomen/pelvis 10/17/2015 DISCUSSION: ABDOMEN: There is no consolidation of the visible lung bases. There is diffuse fatty infiltration of the liver. The liver is mildly enlarged, measuring approximately 18.3 cm in sagittal length. There is a stable small cyst of the left hepatic lobe. A couple of punctate calcifications are seen in the pancreatic head region, potentially related to changes of chronic pancreatitis. There appears to be mild peripancreatic edema, in the region of the pancreatic head and neck. The spleen, gallbladder, adrenal glands, and kidneys appear grossly normal. The stomach and bowel loops are grossly unremarkable. The appendix is not identified. Grossly, there is no evidence of acute appendicitis. No free fluid or abnormal fluid collections are seen. The abdominal aorta is normal in caliber. PELVIS: The bladder is grossly unremarkable. The uterus and ovaries are not seen, presumed absent. BONES: No acute bony abnormalities are seen. IMPRESSION: 1. Calcifications at the pancreatic head region, suggest changes of chronic pancreatitis. Mild peripancreatic edema, around the pancreatic head and neck, suggests mild acute pancreatitis. 2. Hepatic steatosis and mild hepatomegaly. SL:16 01/01/2016 - - Read by: Jose Guadalupe Griffith MD Dictated Date/time: 01/01/16 17:30 Electronically Signed by: Jose Guadalupe Griffith MD 01/01/16 17:36 FINAL REPORT [facility] URINE AND STOOL UA Protein Negative mg/dL Negative mg/dL 10/17/2015 [facility] URINE AND STOOL UA Glucose Negative mg/dL Negative mg/dL 10/17/2015 [facility] URINE AND STOOL UA Ketones Negative mg/dL Negative mg/dL 10/17/2015 [facility] URINE AND STOOL UA Bili Negative *NA* (10/17/15 6:49 PM) Negative 10/17/2015 [facility] URINE AND STOOL UA Leuk Est Small *ABN* (10/17/15 6:49 PM) Negative 10/17/2015 [facility] URINE AND STOOL UA WBC 8 /HPF 0 - 5 10/17/2015 [facility] URINE AND STOOL UA Nitrite Negative (10/17/15 6:49 PM) Negative 10/17/2015 [facility] URINE AND STOOL UA Sq Epi Occasional /LPF Few /LPF 10/17/2015 [facility] URINE AND STOOL UA Spec Grav 1.021 <=1.030 10/17/2015 [facility] URINE AND STOOL UA pH 5.0 5.0 - 8.0 10/17/2015 [facility] URINE AND STOOL UA Hyal Cast 35 /LPF 0 - 2 10/17/2015 [facility] URINE AND STOOL UA Urobilinogen <=1.0 mg/dL 0.1 - 1.0 10/17/2015 [facility] URINE AND STOOL UA Blood Negative (10/17/15 6:49 PM) Negative 10/17/2015 [facility] URINE AND STOOL UA RBC 1 /HPF 0 - 2 10/17/2015 [facility] URINE AND STOOL UA Mucus Few /LPF None Seen /LPF 10/17/2015 [facility] URINE AND STOOL UA Color Yellow *NA* (10/17/15 6:49 PM) Yellow 10/17/2015 [facility] URINE AND STOOL UA Turbidity Clear (10/17/15 6:49 PM) Clear 10/17/2015 [facility] CARDIAC ENZYMES Troponin-I null 0.00 - 0.40 10/17/2015 [facility] CHEM PANEL AST 85 unit/L 0 - 37 10/17/2015 [facility] CHEM PANEL Alk Phos 97 unit/L 39 - 136 10/17/2015 [facility] CHEM PANEL Bili Total 0.8 mg/dL 0.2 - 1.3 10/17/2015 [facility] CHEM PANEL ALT 44 unit/L 0 - 65 10/17/2015 [facility] CHEM PANEL A/G Ratio 0.7 0.7 - 1.6 10/17/2015 [facility] CHEM PANEL BUN 20 mg/dL 7 - 22 10/17/2015 [facility] CHEM PANEL Glucose Lvl 91 mg/dL 70 - 99 10/17/2015 [facility] CHEM PANEL Calcium Lvl 9.2 mg/dL 8.5 - 10.5 10/17/2015 [facility] CHEM PANEL Total Protein 8.7 g/dL 6.4 - 8.4 10/17/2015 [facility] CHEM PANEL Albumin Lvl 3.7 g/dL 3.5 - 5.0 10/17/2015 [facility] CHEM PANEL B/C Ratio 17 6 - 25 10/17/2015 [facility] CHEM PANEL Globulin 5.0 g/dL 2.0 - 4.0 10/17/2015 [facility] CHEM PANEL Sodium Lvl 135 meq/L 135 - 145 10/17/2015 [facility] CHEM PANEL Creatinine Lvl 1.18 mg/dL 0.50 - 1.40 10/17/2015 [facility] CHEM PANEL Potassium Lvl See Note 1 (10/17/15 5:29 PM) 3.5 - 5.1 10/17/2015 Result Comment: The K result of 6.8 should be interpreted with caution due to : moderate hemolysis. Report called to Dian Juarez by Domingo Koenig at 10/17/2015 18:20. Recollection is recommended. Read Back Ok. [facility] CHEM PANEL Chloride Lvl 108 meq/L 95 - 109 10/17/2015 [facility] CHEM PANEL CO2 24 meq/L 24 - 32 10/17/2015 [facility] CHEM PANEL eGFR 48 mL/min/1.73m2 10/17/2015 Result Comment: The eGFR is calculated using the [...] from the National Kidney Disease Education Program (NKDEP) which additionally recommends that when the eGFR is used in patients with extremes of body mass index for purposes of drug dosing, the eGFR should be multiplied by the estimated BMI. [facility] CHEM PANEL Lipase Lvl 257 unit/L 73 - 393 10/17/2015 [facility] HEMATOLOGY Basophils # 0.1 K/CMM 0.0 - 0.2 10/17/2015 [facility] HEMATOLOGY Lymphocytes # 2.7 K/CMM 1.0 - 5.5 10/17/2015 [facility] HEMATOLOGY Monocytes # 0.8 K/CMM 0.0 - 0.8 10/17/2015 [facility] HEMATOLOGY Eosinophils # 0.4 K/CMM 0.0 - 0.5 10/17/2015 [facility] HEMATOLOGY Basophils 0.9 % 0.0 - 1.0 10/17/2015 [facility] HEMATOLOGY Segs-Bands # 6.5 K/CMM 1.5 - 8.1 10/17/2015 [facility] HEMATOLOGY Eosinophils 3.5 % 0.0 - 4.0 10/17/2015 [facility] HEMATOLOGY Monocytes 7.6 % 2.0 - 12.0 10/17/2015 [facility] HEMATOLOGY Segs 61.8 % 45.0 - 75.0 10/17/2015 [facility] Lymphocytes 26.2 % 20.0 - 40.0 10/17/2015 [facility] MPV 8.8 fL 7.4 - 10.4 10/17/2015 [facility] Platelet 210 K/CMM 133 - 450 10/17/2015 [facility] MCV 83.2 fL 80.0 - 98.0 10/17/2015 [facility] MCH 26.8 pg 27.0 - 31.0 10/17/2015 [facility] Hct 47.1 % 36.0 - 48.0 10/17/2015 [facility] MCHC 32.2 g/dL 32.0 - 36.0 10/17/2015 [facility] RDW 15.5 % 11.5 - 14.5 10/17/2015 [facility] Hgb 15.2 g/dL 12.0 - 16.0 10/17/2015 [facility] WBC 10.5 K/CMM 3.7 - 10.4 10/17/2015 [facility] RBC 5.66 M/CMM 4.20 - 5.40 10/17/2015 [facility] ED Abdomen/Pelvis IV contrast only CT ED Abdomen/Pelvis IV contrast only CT Study: ED Abdomen/Pelvis IV contrast only CT Clinical Indication: Diffuse abdominal pain Comparison: CT abdomen and pelvis from 10/22/1612 TECHNIQUE: Multiple axial CT images of the abdomen and pelvis were acquired following the administration of intravenous contrast. Sagittal and coronal reformatted images were performed. CT Radiation Dose DLP 1427 mGy-cm FINDINGS: The visualized lung bases are clear bilaterally. The liver shows a slightly nodular contour, suspicious for cirrhotic morphology. Hepatic and right renal hypodense cysts are stable. Gallbladder, pancreas, spleen, adrenal glands, and left kidney are unremarkable. No intrahepatic or extrahepatic biliary duct dilatation is seen. Urinary bladder is well-distended. Patient is status post hysterectomy. The visualized hollow viscera and appendix are normal in appearance. No intraperitoneal free air, free fluid, or pathologic adenopathy is seen. Advanced degenerative changes of the lumbar spine are seen. IMPRESSION: 1. No acute intra-abdominal/pelvic abnormality. 2. Cirrhotic morphology of the liver. SL: [id number] 10/17/2015 - - Read by: Keith Chan MD Dictated Date/time: 10/17/15 21:59 Electronically Signed by: Keith Chan MD 10/17/15 22:02 FINAL REPORT [facility] Chest 1view DX Chest 1view DX Study: Chest 1view DX Age Female 70 years old Clinical Indication: Chest pain; Comparison: 11/01/2012 FINDINGS: Tubes and lines: None. LUNGS: The volume of the lungs is normal. There is no evidence of consolidation. No pleural effusion is noted. The pulmonary vasculature is within normal limits. MEDIASTINUM: Cardiac silhouette is within normal limits of size. CHEST WALL: Unremarkable. SKELETON: The visualized osseous structures are unremarkable. IMPRESSION: 1. No radiographic evidence of acute cardiopulmonary disease. SL: DARIUSZ 10/17/2015 - - Read by: Aguilar Mendez MD Dictated Date/time: 10/17/15 18:14 Electronically Signed by: Aguilar Mendez MD 10/17/15 18:14 FINAL REPORT [facility] Vital Signs Vital Sign Value Date Comments Source Systolic (mm Hg) 115 03/14/2017 [facility] Diastolic (mm Hg) 89 03/14/2017 [facility] Heart Rate 70 03/14/2017 [facility] Respitory Rate 18 03/14/2017 [facility] Temperature Oral (F) 98 F 03/14/2017 [facility] Heart Rate 69 03/14/2017 [facility] Respitory Rate 19 03/14/2017 [facility] Systolic (mm Hg) 140 03/14/2017 [facility] Diastolic (mm Hg) 72 03/14/2017 [facility] Systolic (mm Hg) 139 03/13/2017 [facility] Diastolic (mm Hg) 72 03/13/2017 [facility] Heart Rate 74 03/13/2017 [facility] Respitory Rate 19 03/13/2017 [facility] Weight 95.455 03/13/2017 [facility] Temperature Oral (F) 98.3 F 03/13/2017 [facility] Weight 205 10/08/2016 Enayet Rahim Height 64 10/08/2016 Enet Rahim Temperature Oral (F) 98.6 F 10/08/2016 Enayet Rahim Diastolic (mm Hg) 95 10/08/2016 Enayet Rahim Systolic (mm Hg) 142 10/08/2016 Enayet Rahim Weight 202 04/26/2016 Enayet Rahim Height 64 04/26/2016 Enayet Rahim Temperature Oral (F) 98.1 F 04/26/2016 Enayet Rahim Systolic (mm Hg) 136.94 04/26/2016 Enayet Rahim Weight 195 01/16/2016 [facility] Rah[facility] Height 64 01/16/[facility] Temperature Oral (F) 97.6 F 01/16/2016 Enayet Rahim Diastolic (mm Hg) 91 01/16/2016 [facility] Systolic (mm Hg) 130 01/16/2016 [facility] Heart Rate 78 01/05/2016 [facility] Respitory Rate 20 01/05/2016 [facility] Temperature Oral (F) 98.2 F 01/05/2016 [facility] Systolic (mm Hg) 148 01/05/2016 [facility] Diastolic (mm Hg) 86 01/05/2016 [facility] Respitory Rate 18 01/05/2016 [facility] Systolic (mm Hg) 136 01/05/2016 [facility] Diastolic (mm Hg) 78 01/05/2016 [facility] Heart Rate 80 01/05/2016 [facility] BMI Calculated 31.68 01/04/2016 [facility] Height 165.1 cm 01/04/2016 [facility] Weight 86.364 01/04/2016 [facility] Respitory Rate 20 01/04/2016 [facility] Heart Rate 88 01/04/2016 [facility] Temperature Oral (F) 98.6 F 01/04/2016 [facility] Systolic (mm Hg) 138 01/04/2016 [facility] Diastolic (mm Hg) 84 01/04/2016 [facility] Heart Rate 75 01/03/2016 [facility] Temperature Oral (F) 98.1 F 01/03/2016 [facility] Respitory Rate 18 01/03/2016 [facility] Systolic (mm Hg) 131 01/03/2016 [facility] Diastolic (mm Hg) 83 01/03/2016 [facility] Temperature Oral (F) 97.8 F 01/03/2016 [facility] Respitory Rate 18 01/03/2016 [facility] Heart Rate 74 01/03/2016 [facility] Systolic (mm Hg) 125 01/03/2016 [facility] Diastolic (mm Hg) 65 01/03/2016 [facility] Heart Rate 66 01/03/2016 [facility] Respitory Rate 18 01/03/2016 [facility] Systolic (mm Hg) 125 01/03/2016 [facility] Diastolic (mm Hg) 83 01/03/2016 [facility] Temperature Oral (F) 97.9 F 01/03/2016 [facility] Height 165.1 cm 01/01/2016 [facility] Weight 89.818 01/01/2016 [facility] BMI Calculated 32.95 01/01/2016 [facility] Weight 198 01/01/2016 Enayet Rahim Height 64 01/01/2016 Enayet Rahim Temperature Oral (F) 97.9 F 01/01/2016 Enayet Rahim Diastolic (mm Hg) 101 01/01/2016 Enayet Rahim Systolic (mm Hg) 137 01/01/2016 Enayet Rahim Weight 199 11/30/2015 Enayet Rahim Height 64 11/30/2015 Enayet Rahim Temperature Oral (F) 98.2 F 11/30/2015 Enayet Rahim Diastolic (mm Hg) 83 11/30/2015 Enayet Rahim Systolic (mm Hg) 113 11/30/2015 Enayet Rahim Systolic (mm Hg) 102 10/18/2015 [facility] Diastolic (mm Hg) 72 10/18/2015 [facility] Respitory Rate 15 10/18/2015 [facility] Systolic (mm Hg) 123 10/18/2015 [facility] Diastolic (mm Hg) 62 10/18/2015 [facility] Respitory Rate 14 10/18/2015 [facility] Systolic (mm Hg) 125 10/18/2015 [facility] Diastolic (mm Hg) 66 10/18/2015 [facility] Respitory Rate 14 10/18/2015 [facility] Temperature Oral (F) 98.3 F 10/17/2015 [facility] Heart Rate 90 10/17/2015 [facility] Weight 192 10/17/2015 Enayet Rahim Height 64 10/17/2015 Enayet Rahim Temperature Oral (F) 99.1 F 10/17/2015 Enayet Rahim Encounters Location Location Details Encounter Type Encounter Number Reason For Visit Attending Provider ADM Date DC Date Status Source Jayson Sanchez MD, [place] Sick Visit [id number] 10/17/2015 10/17/2015 Jaysno Sanchez MD, [place] Sick Visit [id number] 10/17/2015 10/17/2015 Jayson Sanchez MD, [place] Sick Visit [id number] 10/17/2015 10/17/2015 Jayson Sanchez MD, [place] Sick Visit [id number] 10/17/2015 10/17/2015 Jayson Sanchez MD, [place] Sick Visit [id number] 10/17/2015 10/17/2015 Jayson Sanchez MD, [place] Sick Visit [id number] 10/17/2015 10/17/2015 Jayson Sanchze MD, PA Sick Visit [id number] 10/17/2015 10/17/2015 Jayson Sanchez [facility] [id number] Linette Ballardooqi 10/17/2015 10/18/2015 [facility] Jayson Sanchez MD, PA Unknown [id number] 10/19/2015 10/19/2015 Jayson Sanchez MD, [place] Unknown [id number] 10/19/2015 10/19/2015 Jayson Sanchez MD, [place] Unknown [id number] 10/19/2015 10/19/2015 Jayson Sanchez MD, [place] Unknown [id number] 10/19/2015 10/19/2015 Jayson Sanchez MD, [place] Unknown [id number] 10/19/2015 10/19/2015 Jayson Sanchez MD, [place] Unknown [id number] 10/19/2015 10/19/2015 Jayson Sanchez MD, [place] Unknown [id number] 10/19/2015 10/19/2015 Jayson Sanchez MD, [place] Unknown [id number] 10/19/2015 10/19/2015 Jayson Sanchez MD, [place] Unknown [id number] 10/19/2015 10/19/2015 Jayson Sanchez MD, PA Unknown [id number] 10/19/2015 10/19/2015 Jayson Sanchez MD, [place] Unknown [id number] 10/19/2015 10/19/2015 Jayson Sanchez MD, [place] Unknown [id number] 10/19/2015 10/19/2015 Jayson Sanchez MD, [place] Unknown [id number] 10/19/2015 10/19/2015 Jayson Sanchez MD, [place] Unknown [id number] 10/19/2015 10/19/2015 Jayson Sanchez MD, [place] Unknown [id number] 10/19/2015 10/19/2015 Jayson Sanchez MD, [place] Unknown [id number] 10/19/2015 10/19/2015 Jayson Sanchez MD, [place] Unknown [id number] 10/19/2015 10/19/2015 Jayson Sanchez MD, [place] Unknown [id number] 10/19/2015 10/19/2015 Jayson Sanchez MD, PA Unknown [id number] 10/30/2015 10/30/2015 Jayson Sanchez MD, PA Unknown [id number] 10/30/2015 10/30/2015 Jayson Sanchez MD, [place] Unknown [id number] 10/30/2015 10/30/2015 Jayson Sanchez MD, [place] Unknown [id number] 10/30/2015 10/30/2015 Jayson Sanchez MD, [place] Unknown [id number] 10/30/2015 10/30/2015 Jayson Sanchez MD, PA Unknown [id number] 10/30/2015 10/30/2015 Jayson Sanchez MD, [place] Sick Visit [id number] 11/30/2015 11/30/2015 Jayson Sanchez MD, [place] Sick Visit [id number] 11/30/2015 11/30/2015 Jayson Sanchez MD, PA Sick Visit [id number] 11/30/2015 11/30/2015 Jayson Sanchez MD, PA Sick Visit [id number] 11/30/2015 11/30/2015 Jayson Sanchez MD, PA Sick Visit [id number] 11/30/2015 11/30/2015 Jayson Sanchez MD, PA Sick Visit [id number] 01/01/2016 01/01/2016 Jayson Sanchez MD, [place] Sick Visit [id number] 01/01/2016 01/01/2016 Jayson Sanchez MD, [place] Sick Visit [id number] 01/01/2016 01/01/2016 Jayson Sanchez MD, [place] Sick Visit [id number] 01/01/2016 01/01/2016 Jayson Sanchez [facility] Inpatient [id number] Kodi Vikram 01/02/2016 01/03/2016 [facility] Emergency [id number] Tyree Woodard 01/04/2016 01/05/2016 BERNICE Sanchez MD, PA Follow-Up [id number] 01/16/2016 01/16/2016 Jayson Sanchez MD, PA Follow-Up [id number] 01/16/2016 01/16/2016 Jayson Sanchez MD, [place] Unknown [id number] 01/22/2016 01/22/2016 Jayson Sanchez MD, [place] Unknown [id number] 01/22/2016 01/22/2016 J[place] Unknown [id number] 01/22/2016 01/22/2016 Jayson Sanchez MD, [place] REFILLS [id number] 04/26/2016 04/26/2016 Jayson Sanchez [facility] Emergency [id number] Tyree Woodard 03/13/2017 03/14/2017 [facility] Procedures Procedure Code Date Perfomer Comments Source Hysterectomy [id number] 05/05/1982 [facility] Abdomen endoscopy [id number] [facility] Spiral CT scan [id number] [facility] Cholecystectomy [id number] [facility]
--- OUTSIDE RECORDS SUMMARY | 2018-07-21 10:11 | XMS REPORT | Summary of Care ---
Author Author AMRIT ROBLEDO LCSW Organization Unknown Address Unknown Phone Unavailable Care Team Providers Care Corner Trimmer Operator Name Role Phone AMRIT ROBLEDO LCSW Unavailable [...]
--- OUTSIDE RECORDS SUMMARY | 2018-07-21 10:11 | XMS REPORT | Summary of Care ---
Author Author [facility] Organization [facility] Address Unknown Phone Unavailable Encounter DEMETRICE Siddiqi(HILARY) [id number] Date(s): 01/04/16 - 01/04/16 [facility] [address] [place] [address]- Discharge Diagnosis: Chronic pancreatitis Discharge Disposition: Home or Self Care Attending Physician: Tyree Woodard DO Vital Signs 1 2 3 Most recent to oldest [Reference Range]: 165.1 cm (01/04/16 5:10 PM) Height 98.2 DegF (01/04/16 9:17 PM) 98.6 DegF (01/04/16 5:10 PM) Temperature Oral [96.4-99.1 DegF] 148/86 mmHg *HI* (01/04/16 9:17 PM) 136/78 mmHg (01/04/16 7:20 PM) 138/84 mmHg (01/04/16 5:10 PM) Blood Pressure [90-140/60-90 mmHg] 20 BRMIN (01/04/16 9:17 PM) 18 BRMIN (01/04/16 7:20 PM) 20 BRMIN (01/04/16 5:10 PM) Respiratory Rate [14-20 BRMIN] 78 bpm (01/04/16 9:17 PM) 80 bpm (01/04/16 7:20 PM) 88 bpm (01/04/16 5:10 PM) Peripheral Pulse Rate [60-100 bpm] 86.364 kg (01/04/16 5:10 PM) Weight 31.68 m2 (01/04/16 5:10 PM) Body Mass Index Problem List Condition Effective Dates Status Health Status Informant Depression(Confirmed 1996 Resolved ) HTN - 2001 Resolved Hypertension(Confirm ed) Allergies, Adverse Reactions, Alerts Substance Reaction Severity Status NKDA Active Medications morphine Sulfate 4 mg, 2 mL, Route: IVP, Drug form: INJ, ONCE, Dosing Weight 86.364, kg, Priority : STAT, Start date: 01/04/16 21:07:00 CDT, Stop date: 01/04/16 21:07:00 CDT Notes: (Same as:MORPhine Sulfate) Start Date: 01/04/16 Stop Date: 01/04/16 Status: Completed Zofran 4 mg, 2 mL, Route: IVP, Drug form: INJ, ONCE, Dosing Weight 86.364, kg, Priority : STAT, Start date: 01/04/16 21:24:00 CDT, Stop date: 01/04/16 21:24:00 CDT Notes: (Same as: Zofran) MEDICATION WASTE Product Size: 4 mgProduct Was mahendra: ___ mg Start Date: 01/04/16 Stop Date: 01/04/16 Status: Completed Results ELECTROLYTES Most recent to 1 oldest [Reference Range]: Sodium Lvl [135-145 140 mEq/L mEq/L] (01/04/16 5:47 PM) Potassium Lvl 3.8 mEq/L [3.5-5.1 mEq/L] (01/04/16 5:47 PM) Chloride Lvl [95-109 107 mEq/L mEq/L] (01/04/16 5:47 PM) CO2 [24-32 mEq/L] 29 mEq/L (01/04/16 5:47 PM) AGAP [10.0-20.0 7.8 mEq/L mEq/L] *LOW* (01/04/16 5:47 PM) CHEM PANEL Most recent to 1 oldest [Reference Range]: Creatinine Lvl 1.12 mg/dL [0.50-1.40 mg/dL] (01/04/16 5:47 PM) eGFR 51 mL/min/1.73m2 1 *NA* (01/04/16 5:47 PM) BUN [7-22 mg/dL] 9 mg/dL (01/04/16 5:47 PM) B/C Ratio [6-25] 8 (01/04/16 5:47 PM) Glucose Lvl [70-99 103 mg/dL mg/dL] *HI* (01/04/16 5:47 PM) Total Protein 7.8 g/dL [6.4-8.4 g/dL] (01/04/16 5:47 PM) Albumin Lvl [3.5-5.0 3.8 g/dL g/dL] (01/04/16 5:47 PM) Globulin [2.7-4.2 4.0 g/dL g/dL] (01/04/16 5:47 PM) A/G Ratio [0.7-1.6] 1.0 (01/04/16 5:47 PM) Calcium Lvl 9.8 mg/dL [8.5-10.5 mg/dL] (01/04/16 5:47 PM) ALT [0-65 unit/L] 28 unit/L (01/04/16 5:47 PM) AST [0-37 unit/L] 41 unit/L *HI* (01/04/16 5:47 PM) Alk Phos [39-136 89 unit/L unit/L] (01/04/16 5:47 PM) Bili Total [0.2-1.3 0.4 mg/dL mg/dL] (01/04/16 5:47 PM) Lipase Lvl [73-393 220 unit/L unit/L] (01/04/16 5:47 PM) 1Result Comment: The eGFR is calculated [...] be mul tiplied by the estimated BMI. URINE AND STOOL Most recent to 1 oldest [Reference Range]: UA Turbidity [Clear] Marked *ABN* (01/04/16 5:47 PM) UA Color [Yellow] Yellow *NA* (01/04/16 5:47 PM) UA pH [5.0-8.0] 6.0 (01/04/16 5:47 PM) UA Spec Grav 1.015 [<=1.030] (01/04/16 5:47 PM) UA Glucose [Negative Negative mg/dL mg/dL] *NA* (01/04/16 5:47 PM) UA Blood [Negative] Negative (01/04/16 5:47 PM) UA Ketones [Negative Trace mg/dL mg/dL] *ABN* (01/04/16 5:47 PM) UA Protein [Negative Negative mg/dL mg/dL] (01/04/16 5:47 PM) UA Urobilinogen <=1.0 mg/dL [0.1-1.0 mg/dL] *NA* (01/04/16 5:47 PM) UA Bili [Negative] Negative *NA* (01/04/16 5:47 PM) UA Leuk Est Trace [Negative] *ABN* (01/04/16 5:47 PM) UA Nitrite Negative [Negative] (01/04/16 5:47 PM) UA WBC [0-5 /HPF] 31 /HPF *HI* (01/04/16 5:47 PM) UA RBC [0-2 /HPF] 67 /HPF *HI* (01/04/16 5:47 PM) UA Sq Epi [Few /LPF] Occasional /LPF *NA* (01/04/16 5:47 PM) UA Hyal Cast [0-2 9 /LPF /LPF] *HI* (01/04/16 5:47 PM) UA CaOx Noemy [None Moderate /HPF Seen /HPF] *ABN* (01/04/16 5:47 PM) UA Mucus [None Seen Few /LPF /LPF] *NA* (01/04/16 5:47 PM) HEMATOLOGY Most recent to 1 oldest [Reference Range]: WBC [3.7-10.4 K/CMM] 10.1 K/CMM (01/04/16 5:47 PM) RBC [4.20-5.40 4.99 M/CMM M/CMM] (01/04/16 5:47 PM) Hgb [12.0-16.0 g/dL] 13.8 g/dL (01/04/16 5:47 PM) Hct [36.0-48.0 %] 41.3 % (01/04/16 5:47 PM) MCV [80.0-98.0 fL] 82.8 fL (01/04/16 5:47 PM) MCH [27.0-31.0 pg] 27.7 pg (01/04/16 5:47 PM) MCHC [32.0-36.0 33.5 g/dL g/dL] (01/04/16 5:47 PM) RDW [11.5-14.5 %] 15.7 % *HI* (01/04/16 5:47 PM) Platelet [133-450 152 K/CMM K/CMM] (01/04/16 5:47 PM) MPV [7.4-10.4 fL] 8.6 fL (01/04/16 5:47 PM) Segs [45.0-75.0 %] 52.8 % (01/04/16 5:47 PM) Lymphocytes 19.2 % [20.0-40.0 %] *LOW* (01/04/16 5:47 PM) Monocytes [2.0-12.0 6.1 % %] (01/04/16 5:47 PM) Eosinophils [0.0-4.0 21.0 % %] *HI* (01/04/16 5:47 PM) Basophils [0.0-1.0 0.9 % %] (01/04/16 5:47 PM) Segs-Bands # 5.3 K/CMM [1.5-8.1 K/CMM] (01/04/16 5:47 PM) Lymphocytes # 1.9 K/CMM [1.0-5.5 K/CMM] (01/04/16 5:47 PM) Monocytes # [0.0-0.8 0.6 K/CMM K/CMM] (01/04/16 5:47 PM) Eosinophils # 2.1 K/CMM [0.0-0.5 K/CMM] *HI* (01/04/16 5:47 PM) Basophils # [0.0-0.2 0.1 K/CMM K/CMM] (01/04/16 5:47 PM) Immunizations Given and Recorded Vaccine Date [...]
[2018-07-21 12:20] VITALS: BP 152/98
== END | disposition home or self-care (01) ==
LOC: OR 10:06
PROVIDERS: ATTEND Ophthalmology
DX: H25.12 Age-related nuclear cataract, left eye (principal); M54.9 Dorsalgia, unspecified; I10 Essential (primary) hypertension; F41.9 Anxiety disorder, unspecified; F32.9 Major depressive disorder, single episode, unspecified; F17.210 Nicotine dependence, cigarettes, uncomplicated
CPT/HCPCS: 66984; J2250; V2632

== ENCOUNTER 2022-09-13 14:36 | Inpatient (IN) | payer MEDICARE ==
[~2022-09-13] VITALS: Ht 162.6 cm; Wt 73.5 kg
[~2022-09-13 14:36] MED LIST changes: -FENTANYL CITRATE/PF 100MCG/2 ML INJ ONE; -MIDAZOLAM HCL 2 MG/2 ML VIAL ONE; -OR PHACO EYE KIT ONE; -PREOP PHACO EYE KIT ONE
[2022-09-13] MEDS ORDERED: METHYLPREDNISOLONE SOD SUCC 125 MG/2ML VIAL IV STA (14:59)
[2022-09-13] MEDS ORDERED: ALBUTEROL/IPRATROPIUM 3 ML NEB NEB ONE (15:00)
[2022-09-13 15:09] LABS: BASOPHILS # (AUTO) 0.1 (0.0-0.1); BASOPHILS % 0.9 % (0.0-1.0); EOSINOPHILS # (AUTO) 0.3 (0.0-0.4); EOSINOPHILS % 5.2 % (0.0-6.0); HEMATOCRIT 46.7 % (34.2-44.1); HEMOGLOBIN 15.5 g/dL (12.0-16.0); LYMPHOCYTES # (AUTO) 1.3 (1.0-3.2); LYMPHOCYTES % 19.5 % (18.0-39.1); MEAN CORPUSCULAR HEMOGLOBIN 30.7 pg (28-32); MEAN CORPUSCULAR HGB CONC 33.2 g/dL (31-35); MEAN CORPUSCULAR VOLUME 92.5 fL (81-99); MONOCYTES # (AUTO) 0.4 (0.2-0.8); MONOCYTES % 6.4 % (4.4-11.3); NEUTROPHILS # (AUTO) 4.3 (2.1-6.9); NEUTROPHILS % 67.1 % (38.7-80.0); PLATELET COUNT 140 x10e3/uL (140-360); RED BLOOD COUNT 5.05 x10e6/uL (3.6-5.1); RED CELL DISTRIBUTION WIDTH 14.6 % (11.7-14.4)
[2022-09-13 15:21] LABS: ALANINE AMINOTRANSFERASE 41 IU/L (0-55); ALBUMIN 3.2 g/dL (3.5-5.0); ALBUMIN/GLOBULIN RATIO 0.9 (0.8-2.0); ALKALINE PHOSPHATASE 102 IU/L (40-150); ANION GAP 11.8 mmol/L (8-16); BLOOD UREA NITROGEN 12 mg/dL (7-26); BUN/CREATININE RATIO 11 (6-25); CARBON DIOXIDE 28 mmol/L (22-29); CHLORIDE 106 mmol/L (98-107); CREATINE KINASE 38 IU/L (29-168); CREATININE, SERUM 1.08 mg/dL (0.57-1.11); GLUCOSE 139 mg/dL (74-118); POTASSIUM 3.8 mmol/L (3.5-5.1); SODIUM 142 mmol/L (136-145)
[2022-09-13 15:36] VITALS: PULSE 72; RESP 20; O2SAT 98
[2022-09-13] MEDS ORDERED: ALPRAZOLAM1 MG PO (16:07)
[2022-09-13] MEDS ORDERED: ADVAIR 250-501 EACH INH (16:07)
[2022-09-13] MEDS ORDERED: PROPRANOLOL HCL10 MG PO (16:07)
[2022-09-13] MEDS ORDERED: VITAMIN D250 MCG PO (16:07)
[2022-09-13] MEDS ORDERED: SUCRALFATE1 GM PO (16:07)
[2022-09-13] MEDS ORDERED: PROVENTIL HFA6.7 GM INH (16:07)
[2022-09-13] MEDS ORDERED: PROTONIX20 MG PO (16:07)
[2022-09-13] MEDS ORDERED: LOSARTAN POTASS25 MG PO (16:07)
[2022-09-13] MEDS ORDERED: HYDROXYZINE HCL25 MG PO (16:07)
[2022-09-13] MEDS ORDERED: FEROSUL325 MG PO (16:07)
[2022-09-13] MEDS ORDERED: SODIUM CHLORIDE 0.9% 1000ML 500 ML IV ONE (16:15)
[2022-09-13] MEDS ORDERED: SODIUM CHLORIDE 0.9% 500ML 500 ML ONE (16:22)
[2022-09-13] MEDS ORDERED: SODIUM CHLORIDE 0.9% 500ML 500 ML IV ONE (16:30)
[2022-09-13] MEDS ORDERED: IOPAMIDOL 370 MG/ML 100 ML INFUS..BTL INJ ONE (16:38)
[2022-09-13] MEDS ORDERED: ALBUTEROL/IPRATROPIUM 3 ML NEB NEB PRN (17:15)
[2022-09-13 18:55] VITALS: PULSE 71; RESP 20; O2SAT 98
[2022-09-13 18:56] VITALS: PULSE 72; RESP 20; O2SAT 98
[2022-09-13 20:47] VITALS: BP 138/92; PULSE 84; RESP 18; TEMP 98.1; O2SAT 98
[2022-09-13 21:00] VITALS: BP 138/92; PULSE 84; RESP 18; TEMP 98.1; O2SAT 98
[2022-09-13] MEDS: METHYLPREDNISOLONE SOD SUCC 125 MG/2ML VIAL IV SCH (21:21)
[2022-09-13] MEDS ORDERED: ALBUTEROL SULF 0.083% NEB SOLN 3 ML NEB NEB PRN (21:30)
[2022-09-13] MEDS ORDERED: BENZONATATE 100 MG CAP PO PRN (21:30)
[2022-09-13] MEDS ORDERED: IPRATROPIUM BROMIDE 0.02% 2.5 ML NEB NEB PRN (21:30)
[2022-09-13] MEDS ORDERED: HYDRALAZINE HCL 20 MG/ML VIAL IV PRN (21:30)
[2022-09-13] MEDS: PROPRANOLOL HCL 10 MG TAB PO SCH (22:00)
[2022-09-13] MEDS: SALMETEROL/FLUTICASONE 250/50 INH SCH (22:00)
[2022-09-13] MEDS: NICOTINE 21 MG/EA PATCH TOP PRN (22:38)
[2022-09-13] MEDS: ALPRAZOLAM 1 MG TAB PO PRN (22:39)
[2022-09-13] MEDS: FERROUS SULFATE 325 MG TAB PO SCH (22:39)
[2022-09-13] MEDS: SUCRALFATE 1 GM TAB PO SCH (22:39)
[2022-09-13] MEDS: PANTOPRAZOLE SOD 40 MG TABEC PO SCH (22:39)
[2022-09-13 22:40] VITALS: PULSE 70; RESP 19; O2SAT 97
[2022-09-13] MEDS: ALBUTEROL SULF 0.083% NEB SOLN 3 ML NEB INH SCH (22:40)
[2022-09-13] MEDS: HYDROXYZINE HCL 25 MG TAB PO PRN (22:43)
[2022-09-14] VITALS (10 sets, daily range): BP systolic 128–166; BP diastolic 75–97; PULSE 67–86; RESP 17–18; TEMP 97.1–98.5; O2SAT 92–100
[2022-09-14] MEDS: ALBUTEROL SULF 0.083% NEB SOLN 3 ML NEB INH SCH ×3 (02:15→19:35)
[2022-09-14] MEDS: IPRATROPIUM BROMIDE 0.02% 2.5 ML NEB INH SCH ×3 (02:15→19:35)
[2022-09-14 02:39] LABS: CREATINE KINASE 30 IU/L (29-168)
[2022-09-14 05:55] LABS: BASOPHILS % 0.2 % (0.0-1.0); LYMPHOCYTES # (AUTO) 0.9 (1.0-3.2); MEAN CORPUSCULAR HEMOGLOBIN 30.5 pg (28-32); MEAN CORPUSCULAR HGB CONC 32.6 g/dL (31-35); MEAN CORPUSCULAR VOLUME 93.7 fL (81-99); MONOCYTES % 0.7 % (4.4-11.3); NEUTROPHILS # (AUTO) 4.7 (2.1-6.9); NEUTROPHILS % 82.7 % (38.7-80.0); PLATELET COUNT 100 x10e3/uL (140-360); RED BLOOD COUNT 4.59 x10e6/uL (3.6-5.1); RED CELL DISTRIBUTION WIDTH 13.7 % (11.7-14.4)
[2022-09-14 06:17] LABS: ANION GAP 13.4 mmol/L (8-16); CALCIUM 9.3 mg/dL (8.4-10.2); CREATININE, SERUM 0.99 mg/dL (0.57-1.11); POTASSIUM 4.4 mmol/L (3.5-5.1)
[2022-09-14] MEDS: SALMETEROL/FLUTICASONE 250/50 INH SCH ×2 (08:34→17:00)
[2022-09-14] MEDS: PROPRANOLOL HCL 10 MG TAB PO SCH ×2 (08:48→16:19)
[2022-09-14] MEDS: GUAIFENESIN 600MG/DEXTROMETHORPHAN 30MG TABSR PO SCH ×2 (08:48→16:19)
[2022-09-14] MEDS: BUPROPION HCL 75 MG TAB PO SCH (08:48)
[2022-09-14] MEDS: FERROUS SULFATE 325 MG TAB PO SCH ×2 (08:49→16:19)
[2022-09-14] MEDS: DULOXETINE HCL 20 MG DELAYED RELEASE PO SCH (08:49)
[2022-09-14] MEDS: SUCRALFATE 1 GM TAB PO SCH ×3 (08:49→20:46)
[2022-09-14] MEDS: AZITHROMYCIN 250 MG TAB PO SCH (08:49)
[2022-09-14] MEDS: AMLODIPINE BESYLATE 5 MG TAB PO SCH (08:49)
[2022-09-14] MEDS: PANTOPRAZOLE SOD 40 MG TABEC PO SCH ×2 (08:49→16:19)
[2022-09-14] MEDS: LOSARTAN POTASSIUM 25 MG TAB PO SCH ×2 (08:50→20:47)
[2022-09-14] MEDS: METHYLPREDNISOLONE SOD SUCC 125 MG/2ML VIAL IV SCH ×3 (08:50→12:55)
[2022-09-14 12:15] LABS: CREATINE KINASE MB 1.5 ng/mL (0-5.0)
[2022-09-14] MEDS: NICOTINE 21 MG/EA PATCH TOP PRN (18:11)
[2022-09-14] MEDS: TIZANIDINE HCL 4 MG TAB PO PRN (20:46)
[2022-09-14] MEDS: ALPRAZOLAM 1 MG TAB PO PRN (20:46)
[2022-09-15] VITALS (11 sets, daily range): BP systolic 117–132; BP diastolic 50–75; PULSE 62–96; RESP 16–20; TEMP 97.1–98.5; O2SAT 92–99
[2022-09-15] MEDS: HYDROXYZINE HCL 25 MG TAB PO PRN ×2 (00:40→20:28)
[2022-09-15] MEDS: IPRATROPIUM BROMIDE 0.02% 2.5 ML NEB INH SCH ×4 (01:40→19:00)
[2022-09-15] MEDS: ALBUTEROL SULF 0.083% NEB SOLN 3 ML NEB INH SCH ×4 (01:40→19:00)
[2022-09-15] MEDS: SALMETEROL/FLUTICASONE 250/50 INH SCH ×2 (08:55→19:25)
[2022-09-15] MEDS: DULOXETINE HCL 20 MG DELAYED RELEASE PO SCH (09:17)
[2022-09-15] MEDS: BUPROPION HCL 75 MG TAB PO SCH (09:17)
[2022-09-15] MEDS: AMLODIPINE BESYLATE 5 MG TAB PO SCH (09:17)
[2022-09-15] MEDS: AZITHROMYCIN 250 MG TAB PO SCH (09:17)
[2022-09-15] MEDS: FERROUS SULFATE 325 MG TAB PO SCH ×2 (09:18→17:18)
[2022-09-15] MEDS: PANTOPRAZOLE SOD 40 MG TABEC PO SCH ×2 (09:18→17:17)
[2022-09-15] MEDS: PROPRANOLOL HCL 10 MG TAB PO SCH ×2 (09:18→17:18)
[2022-09-15] MEDS: LOSARTAN POTASSIUM 25 MG TAB PO SCH (09:18)
[2022-09-15] MEDS: GUAIFENESIN 600MG/DEXTROMETHORPHAN 30MG TABSR PO SCH ×2 (09:18→17:17)
[2022-09-15] MEDS: SUCRALFATE 1 GM TAB PO SCH (09:18)
[2022-09-15] MEDS: NICOTINE 21 MG/EA PATCH TOP PRN (15:30)
[2022-09-15] MEDS ORDERED: SODIUM CHLORIDE 0.9% 250ML 250 ML ONE (17:26)
[2022-09-15] MEDS: ALPRAZOLAM 1 MG TAB PO PRN (20:28)
[2022-09-15] MEDS: TIZANIDINE HCL 4 MG TAB PO PRN (20:28)
[2022-09-16] VITALS (10 sets, daily range): BP systolic 96–147; BP diastolic 47–83; PULSE 61–82; RESP 16–21; TEMP 97.1–98.1; O2SAT 95–98
[2022-09-16] MEDS: ALBUTEROL SULF 0.083% NEB SOLN 3 ML NEB INH SCH ×4 (00:10→19:15)
[2022-09-16] MEDS: IPRATROPIUM BROMIDE 0.02% 2.5 ML NEB INH SCH ×4 (00:10→19:15)
[2022-09-16] MEDS ORDERED: SODIUM CHLORIDE 0.9% 250ML 250 ML IV ONE (01:00)
[2022-09-16 08:25] LABS: BASOPHILS # (AUTO) 0.1 (0.0-0.1); BASOPHILS % 0.5 % (0.0-1.0); EOSINOPHILS # (AUTO) 0.2 (0.0-0.4); EOSINOPHILS % 1.6 % (0.0-6.0); HEMATOCRIT 43.8 % (34.2-44.1); HEMOGLOBIN 14.1 g/dL (12.0-16.0); LYMPHOCYTES # (AUTO) 2.1 (1.0-3.2); LYMPHOCYTES % 22.3 % (18.0-39.1); MEAN CORPUSCULAR HEMOGLOBIN 30.3 pg (28-32); MEAN CORPUSCULAR HGB CONC 32.2 g/dL (31-35); MEAN CORPUSCULAR VOLUME 94.2 fL (81-99); MONOCYTES # (AUTO) 0.7 (0.2-0.8); MONOCYTES % 6.9 % (4.4-11.3); NEUTROPHILS # (AUTO) 6.4 (2.1-6.9); NEUTROPHILS % 67.6 % (38.7-80.0); PLATELET COUNT 112 x10e3/uL (140-360); RED BLOOD COUNT 4.65 x10e6/uL (3.6-5.1); RED CELL DISTRIBUTION WIDTH 14.6 % (11.7-14.4)
[2022-09-16 08:39] LABS: ANION GAP 8.6 mmol/L (8-16); CALCIUM 8.7 mg/dL (8.4-10.2); CREATININE, SERUM 1.38 mg/dL (0.57-1.11); POTASSIUM 3.6 mmol/L (3.5-5.1)
[2022-09-16] MEDS: PROPRANOLOL HCL 10 MG TAB PO SCH ×2 (09:00→16:30)
[2022-09-16 09:01] LABS: THYROID STIMULATING HORMONE 4.463 uIU/mL (0.350-4.940)
[2022-09-16] MEDS: BUPROPION HCL 75 MG TAB PO SCH (09:02)
[2022-09-16] MEDS: DULOXETINE HCL 20 MG DELAYED RELEASE PO SCH (09:02)
[2022-09-16] MEDS: GUAIFENESIN 600MG/DEXTROMETHORPHAN 30MG TABSR PO SCH ×2 (09:02→16:29)
[2022-09-16] MEDS: PANTOPRAZOLE SOD 40 MG TABEC PO SCH ×2 (09:03→16:30)
[2022-09-16] MEDS: FERROUS SULFATE 325 MG TAB PO SCH ×2 (09:03→16:30)
[2022-09-16] MEDS: SUCRALFATE 1 GM TAB PO SCH ×2 (09:03→16:29)
[2022-09-16] MEDS: AZITHROMYCIN 250 MG TAB PO SCH (09:04)
[2022-09-16 10:10] LABS: CHOL/HDL RATIO 3.5 (3.0-3.6)
[2022-09-16] MEDS: SALMETEROL/FLUTICASONE 250/50 INH SCH (19:30)
[2022-09-16] MEDS: ALPRAZOLAM 1 MG TAB PO PRN (21:05)
[2022-09-16] MEDS: HYDROXYZINE HCL 25 MG TAB PO PRN (22:04)
[2022-09-17] VITALS (11 sets, daily range): BP systolic 116–157; BP diastolic 64–89; PULSE 63–79; RESP 18–23; TEMP 97.8–98.3; O2SAT 93–100
[2022-09-17] MEDS: ALBUTEROL SULF 0.083% NEB SOLN 3 ML NEB INH SCH ×4 (01:00→19:20)
[2022-09-17] MEDS: IPRATROPIUM BROMIDE 0.02% 2.5 ML NEB INH SCH ×4 (01:00→19:20)
[2022-09-17] MEDS: SALMETEROL/FLUTICASONE 250/50 INH SCH ×2 (07:28→19:20)
[2022-09-17] MEDS: GUAIFENESIN 600MG/DEXTROMETHORPHAN 30MG TABSR PO SCH ×2 (10:03→16:51)
[2022-09-17] MEDS: FERROUS SULFATE 325 MG TAB PO SCH ×2 (10:03→16:51)
[2022-09-17] MEDS: AZITHROMYCIN 250 MG TAB PO SCH (10:03)
[2022-09-17] MEDS: DULOXETINE HCL 20 MG DELAYED RELEASE PO SCH (10:03)
[2022-09-17] MEDS: SUCRALFATE 1 GM TAB PO SCH ×2 (10:03→16:51)
[2022-09-17] MEDS: ASPIRIN 81 MG ENTERIC COATED PO SCH (10:04)
[2022-09-17] MEDS: BUPROPION HCL 75 MG TAB PO SCH (10:04)
[2022-09-17] MEDS: PROPRANOLOL HCL 10 MG TAB PO SCH ×2 (10:04→16:52)
[2022-09-17] MEDS: PANTOPRAZOLE SOD 40 MG TABEC PO SCH ×2 (10:04→16:52)
[2022-09-17] MEDS: MIDODRINE HCL 5 MG TABLET PO SCH ×3 (10:10→16:51)
[2022-09-17] MEDS: HYDROXYZINE HCL 25 MG TAB PO PRN (21:22)
[2022-09-17] MEDS: ALPRAZOLAM 1 MG TAB PO PRN (21:22)
[2022-09-18] VITALS (7 sets, daily range): BP systolic 138–164; BP diastolic 74–95; PULSE 67–84; RESP 16–21; TEMP 98.1–98.4; O2SAT 92–100
[2022-09-18] MEDS: IPRATROPIUM BROMIDE 0.02% 2.5 ML NEB INH SCH ×2 (07:05)
[2022-09-18] MEDS: ALBUTEROL SULF 0.083% NEB SOLN 3 ML NEB INH SCH ×2 (07:05)
[2022-09-18] MEDS: SALMETEROL/FLUTICASONE 250/50 INH SCH (07:30)
[2022-09-18] MEDS: PROPRANOLOL HCL 10 MG TAB PO SCH (09:33)
[2022-09-18] MEDS: SUCRALFATE 1 GM TAB PO SCH (09:33)
[2022-09-18] MEDS: GUAIFENESIN 600MG/DEXTROMETHORPHAN 30MG TABSR PO SCH (09:33)
[2022-09-18] MEDS: DULOXETINE HCL 20 MG DELAYED RELEASE PO SCH (09:33)
[2022-09-18] MEDS: BUPROPION HCL 75 MG TAB PO SCH (09:33)
[2022-09-18] MEDS: AZITHROMYCIN 250 MG TAB PO SCH (09:33)
[2022-09-18] MEDS: ASPIRIN 81 MG ENTERIC COATED PO SCH (09:34)
[2022-09-18] MEDS: MIDODRINE HCL 5 MG TABLET PO SCH ×2 (09:34→12:00)
[2022-09-18] MEDS: FERROUS SULFATE 325 MG TAB PO SCH (09:34)
[2022-09-18] MEDS: PANTOPRAZOLE SOD 40 MG TABEC PO SCH (09:34)
[2022-09-18] MEDS: NICOTINE 21 MG/EA PATCH TOP PRN (09:40)
== END 2022-09-18 14:15 | disposition home or self-care (01) | DRG 190 ==
LOC: ER 14:41 → ERHOLD 17:16 → MED/SURG2 20:16 → OBSVTOIN 09-15 10:17
PROVIDERS: ADMIT Internal Medicine; ATTEND Internal Medicine
DX: J43.2 Centrilobular emphysema (principal); J18.9 Pneumonia, unspecified organism; J96.01 Acute respiratory failure with hypoxia; F17.210 Nicotine dependence, cigarettes, uncomplicated; I10 Essential (primary) hypertension; F32.9 Major depressive disorder, single episode, unspecified; K74.60 Unspecified cirrhosis of liver; E78.5 Hyperlipidemia, unspecified; I70.90 Unspecified atherosclerosis; R07.89 Other chest pain; I95.1 Orthostatic hypotension
CPT/HCPCS: 0223U; 36415; 70450; 71046; 71260; 80048; 80053; 80061; 82550; 82553; 82607; 83036; 83540; 84443; 84466; 84484; 85025; 85379; 87040; 87086; 93005; 93306; 94640; 94799; 99284; G0378; J0696; J2930; J3410; J7040; J7050; Q9967

== ENCOUNTER 2024-05-16 19:14 | Emergency (ER) | payer MEDICARE ==
[~2024-05-16] VITALS: Ht 160 cm; Wt 74.8 kg
[~2024-05-16 19:14] MED LIST changes: +ADVAIR 250-501 EACH INH; +ALPRAZOLAM1 MG PO; +AZITHROMYCIN250 MG PO; +CORTISPORIN-TC10 M1 RIGHT EAR; +DOCUSATE SODIU100 MG PO; +FEROSUL325 MG PO; +HYDROXYZINE HCL25 MG PO; +KLOR-CON M2020 MEQ PO; +LOSARTAN POTASS25 MG PO; +PREDNISONE20 MG PO; +PROPRANOLOL HCL10 MG PO; +PROTONIX20 MG PO; +PROVENTIL HFA6.7 GM INH; +SPIRONOLACTONE50 MG PO; +SUCRALFATE1 GM PO; +TRELEGY ELLIPT1 EACH INH; +VENTOLIN HFA18 GM INH; +VITAMIN D250 MCG PO
[2024-05-16 19:23] VITALS: PULSE 81; RESP 18; TEMP 97.7
[2024-05-16 20:06] LABS: BASOPHILS % 0.5 % (0.0-1.0); EOSINOPHILS # (AUTO) 0.1 (0.0-0.4); EOSINOPHILS % 1.8 % (0.0-6.0); HEMATOCRIT 46.1 % (34.2-44.1); HEMOGLOBIN 14.5 g/dL (12.0-16.0); LYMPHOCYTES # (AUTO) 1.4 (1.0-3.2); LYMPHOCYTES % 22.7 % (18.0-39.1); MEAN CORPUSCULAR HEMOGLOBIN 31.5 pg (28-32); MEAN CORPUSCULAR HGB CONC 31.5 g/dL (31-35); MONOCYTES # (AUTO) 0.5 (0.2-0.8); NEUTROPHILS # (AUTO) 4.1 (2.1-6.9); NEUTROPHILS % 66.2 % (38.7-80.0); PLATELET COUNT 70 x10e3/uL (140-360); RED BLOOD COUNT 4.61 x10e6/uL (3.6-5.1); WHITE BLOOD COUNT 6.12 x10e3/uL (4.8-10.8)
[2024-05-16 20:44] LABS: ALBUMIN 3.5 g/dL (3.5-5.0); ALBUMIN/GLOBULIN RATIO 1.1 (0.8-2.0); ANION GAP 17.5 mmol/L (8-16); BILIRUBIN,TOTAL 0.6 mg/dL (0.2-1.2); CREATININE, SERUM 2.34 mg/dL (0.57-1.11); POTASSIUM 4.5 mmol/L (3.5-5.1); TOTAL PROTEIN 6.7 g/dL (6.5-8.1)
[2024-05-16 20:51] LABS: TROPONIN I 0.01 ng/mL (0-0.300)
[2024-05-16] MEDS ORDERED: CEPHALEXIN500 MG PO (21:31)
[2024-05-16 21:44] VITALS: BP 122/52; PULSE 68; RESP 19; O2SAT 99
== END 2024-05-16 21:51 | disposition home or self-care (01) ==
LOC: ER 19:30
DX: S51.812A Laceration without foreign body of left forearm, initial encounter (principal); W18.39XA Other fall on same level, initial encounter; Y93.01 Activity, walking, marching and hiking; Y92.89 Other specified places as the place of occurrence of the external cause; I12.9 Hypertensive chronic kidney disease with stage 1 through stage 4 chronic kidney disease, or unspecified chronic kidney disease; N18.9 Chronic kidney disease, unspecified; J44.9 Chronic obstructive pulmonary disease, unspecified; F03.90 Unspecified dementia, unspecified severity, without behavioral disturbance, psychotic disturbance, mood disturbance, and anxiety; K21.9 Gastro-esophageal reflux disease without esophagitis; F41.9 Anxiety disorder, unspecified; F32.A Depression, unspecified; M54.9 Dorsalgia, unspecified; G89.29 Other chronic pain; Z86.73 Personal history of transient ischemic attack (TIA), and cerebral infarction without residual deficits
CPT/HCPCS: 36415; 70450; 71045; 80053; 82550; 83690; 83880; 84484; 85025; 93005; 99284

== ENCOUNTER 2024-07-17 13:00 | Emergency (ER) | payer MEDICARE ==
[~2024-07-17] VITALS: Ht 160 cm; Wt 74.8 kg
[~2024-07-17 13:00] MED LIST changes: +CEPHALEXIN500 MG PO
[2024-07-17] MEDS ORDERED: MUPIROCIN22 GM TOP (14:10)
[2024-07-17 14:50] VITALS: PULSE 82; RESP 18; TEMP 98; O2SAT 99
== END 2024-07-17 15:00 | disposition home or self-care (01) ==
LOC: ER 13:46
DX: S51.812A Laceration without foreign body of left forearm, initial encounter (principal); X58.XXXA Exposure to other specified factors, initial encounter; I10 Essential (primary) hypertension; J44.9 Chronic obstructive pulmonary disease, unspecified; K76.9 Liver disease, unspecified; F03.90 Unspecified dementia, unspecified severity, without behavioral disturbance, psychotic disturbance, mood disturbance, and anxiety; K21.9 Gastro-esophageal reflux disease without esophagitis; F41.9 Anxiety disorder, unspecified; F32.A Depression, unspecified; M54.9 Dorsalgia, unspecified; G89.29 Other chronic pain; Z86.73 Personal history of transient ischemic attack (TIA), and cerebral infarction without residual deficits
CPT/HCPCS: 99282

== ENCOUNTER 2025-02-18 13:44 | Emergency (ER) | payer MEDICARE ==
[~2025-02-18] VITALS: Ht 162.6 cm; Wt 63.1 kg
[~2025-02-18 13:44] MED LIST changes: +MUPIROCIN22 GM TOP
[2025-02-18] MEDS: SODIUM CHLORIDE 0.9% 1000ML 1,000 ML IV ONE (15:10)
[2025-02-18] MEDS: ONDANSETRON HCL INJ 2MG/ML 2ML 2 MG/ML VIAL IV STA (15:10)
[2025-02-18] MEDS ORDERED: PROMETHAZINE12.5 M1 PO (16:50)
[2025-02-18 17:10] VITALS: PULSE 89; RESP 16; TEMP 98.1; O2SAT 95
== END 2025-02-18 17:10 | disposition home or self-care (01) ==
LOC: FSED 14:21
DX: R05.9 Cough, unspecified (principal); B34.9 Viral infection, unspecified; R51.9 Headache, unspecified; F03.90 Unspecified dementia, unspecified severity, without behavioral disturbance, psychotic disturbance, mood disturbance, and anxiety; I10 Essential (primary) hypertension; J44.9 Chronic obstructive pulmonary disease, unspecified; K76.9 Liver disease, unspecified; K21.9 Gastro-esophageal reflux disease without esophagitis; M54.9 Dorsalgia, unspecified; G89.29 Other chronic pain; F41.9 Anxiety disorder, unspecified; F32.A Depression, unspecified; Z11.52 Encounter for screening for COVID-19; F17.210 Nicotine dependence, cigarettes, uncomplicated
CPT/HCPCS: 0223U; 71046; 80048; 80076; 85025; 87400; 99284; J2405; J7030